=== PATIENT | female | born 1950 | race Caucasian/White ===

== ENCOUNTER 2016-06-20 12:57 | Outpatient (CLI) | payer BC ==
[~2016-06-20] VITALS: Ht 154.9 cm; Wt 56.7 kg
[~2016-06-20 12:57] MED LIST: AMLO5TAB2 PO; ASPI-875 PO; ATOR20TA66 PO; CALCIUM; CHOL200035 PO; DENO60DI SQ; DOCU100T7 PO; GLUC-116 PO; HCTZ12.5T PO; IBAN150T5; LORA10TA7 PO; MULT-974 PO; NEBI5TAB8 PO; OMEG-85 PO; UBID100C17 PO; [UNRECOGNIZED DRUG - OTHER]
[2016-06-20 13:00] VITALS: BP 130/61
[2016-06-20] MEDS ORDERED: DENOSUMAB 60 MG/1 ML (PROLIA) SQ ONE (13:15)
[2016-06-20] MEDS ORDERED: LISI-552 PO (14:23)
== END 2016-06-20 13:20 | disposition home or self-care (01) ==
LOC: SDC 12:57
PROVIDERS: ATTEND Internal Medicine
DX: M81.0 Age-related osteoporosis without current pathological fracture (principal)
CPT/HCPCS: 96372

== ENCOUNTER 2016-12-04 18:57 | Emergency (ER) | payer BC ==
[~2016-12-04] VITALS: Ht 154.9 cm; Wt 66.2 kg
[~2016-12-04 18:57] MED LIST changes: +LISI-552 PO
--- OUTSIDE RECORDS SUMMARY | 2016-12-04 19:04 | XMS REPORT ---
Author Author SYLVIA SEBAS Organization [facility] Address [address] [place] [address] Care Team Providers Care Supervisor Ditching Name Role Phone WARDSEBAS Hay Unavailable PROBLEMS Unknown Problems ALLERGIES Substance Reaction Event Type Date Status N.K.D.A. Unknown Non Drug Allergy Mar, Unknown SOCIAL HISTORY No smoking Hx information available PLAN OF CARE Activity Details Follow Up prn Reason: VITAL SIGNS Height 61.5 in 2016-04-10 Weight 168.2 lbs 2016-04-10 Temperature 98.8 degrees Fahrenheit 2016-04-10 Heart Rate 60 bpm 2016-04-10 Respiratory Rate 20 2016-04-10 BMI 31.26 kg/m2 2016-04-10 Blood pressure systolic 132 mmHg 2016-04-10 Blood pressure diastolic 64 mmHg 2016-04-10 MEDICATIONS Medication Instructions Dosage Frequency Start Date End Date Duration Status Calcium + D 500-1000-40 MG-UNT-MCG Active Vitamin D 2000 UNIT Orally Once a day 1 tablet 24h Active Atorvastatin Calcium 20 MG Orally Once a day 1 tablet 24h Active Bystolic 5 MG Orally Once a day 1 tablet 24h Active Estroven Active Erythromycin 5 MG/GM Ophthalmic 2 times a day apply 1/2 inch ribbon to both eyes 12h 30 Mar, 2016 Apr, 07 days Active Ranitidine HCl 150 MG Orally Once a day 1 capsule at bedtime 24h Active CoQ-10 100 MG Orally Once a day 1 capsule with a meal 24h Active Colace Adult Active Fish Oil + D3 2102-5232 MG-UNIT Orally Three times a day 1 capsule 8h Active Multivitamin Adult - Active Lisinopril 20 MG Active Loratadine 10 MG Orally Once a day 1 tablet 24h Active Hydrochlorothiazide 25 MG Orally Once a day 1 tablet 24h Active ASA 1 tab Active Prolia 60 MG/ML Active Amlodipine & Diet Manage Prod Active Glucosamine Chondroitin Complx - Active RESULTS No Results PROCEDURES Procedure Date Ordered Related Diagnosis Body Site [facility] VISIT NEW PATIENT Apr 10, 2016 Office Visit, New Pt., Level 3 Apr 10, 2016 IMMUNIZATIONS No Known Immunizations
--- OUTSIDE RECORDS SUMMARY | 2016-12-04 19:04 | XMS REPORT | Continuity of Care Document ---
Author Author [facility] Organization [facility] Address Unknown Phone Unavailable Allergies Active Description Code Type Severity Reaction Onset Reported/Identified Relationship to Patient Clinical Status Yes No Known Drug Allergies [id number] Drug Allergy Mild N/A 07/25/2008 Medications Problems Date Dx Coded Attending Type Code Diagnosis Diagnosed By 06/18/2014 MORALES WILHELM MD Ot 733.00 01/06/2015 MORALES WILHELM MD Ot M81.0 01/14/2015 MORALES WILHELM MD Ot 733.00 01/14/2015 MORALES WILHELM MD Ot 733.00 01/14/2015 MORALES WILHELM MD, Ot M81.0 01/27/2015 NOEL OMALLEY MD Ot I10 01/27/2015 NOEL OMALLEY MD Ot I65.23 01/27/2015 NOEL OMALLEY MD Ot R00.2 01/27/2015 NOEL OMALLEY MD Ot R78.2 06/21/2015 MORALES WILHELM MD Ot M81.0 06/24/2015 MORALES WILHELM MD Ot M81.0 07/08/2015 MORALES WILHELM MD Ot M81.0 AGE-RELATED OSTEOPOROSIS W/O CURRENT PAT 12/20/2015 MORALES WILHELM MD Ot 733.00 OSTEOPOROSIS NOS 12/20/2015 MORALES IWLHELM MD Ot 733.00 OSTEOPOROSIS NOS 12/20/2015 MORALES WILHELM MD Ot M81.0 AGE-RELATED OSTEOPOROSIS W/O CURRENT PAT 12/20/2015 MORALES WILHELM MD, Ot M81.0 AGE-RELATED OSTEOPOROSIS W/O CURRENT PAT 12/20/2015 NOEL OMALLEY MD Ot I10 ESSENTIAL (PRIMARY) HYPERTENSION 12/20/2015 NOEL OMALLEY MD Ot I65.23 OCCLUSION AND STENOSIS OF BILATERAL [place] 12/20/2015 NOEL OMALLEY MD Ot R00.2 PALPITATIONS 12/20/2015 NOEL OMALLEY MD Ot R78.2 FINDING OF COCAINE IN BLOOD 12/22/2015 MORALES WILHELM MD Ot M81.0 AGE-RELATED OSTEOPOROSIS W/O CURRENT PAT 01/06/2016 MORALES WILHELM MD Ot M81.0 AGE-RELATED OSTEOPOROSIS W/O CURRENT PAT 02/08/2016 MORALES WIHLELM MD Ot M81.0 AGE-RELATED OSTEOPOROSIS W/O CURRENT PAT 06/20/2016 MORALES WILHELM MD Ot 733.00 OSTEOPOROSIS NOS 06/20/2016 MORALES WILHELM MD Ot 733.00 OSTEOPOROSIS NOS 06/20/2016 MORALES WILHELM MD Ot M81.0 AGE-RELATED OSTEOPOROSIS W/O CURRENT PAT 06/20/2016 MORALES WILHELM MD, Ot M81.0 AGE-RELATED OSTEOPOROSIS W/O CURRENT PAT 06/20/2016 NOEL OMALLEY MD Ot I10 ESSENTIAL (PRIMARY) HYPERTENSION 06/20/2016 NOEL OMALLEY MD Ot I65.23 OCCLUSION AND STENOSIS OF BILATERAL [place] 06/20/2016 NOEL OMALLEY MD Ot R00.2 PALPITATIONS 06/20/2016 NOEL OMALLEY MD Ot R78.2 FINDING OF COCAINE IN BLOOD 06/20/2016 MORALES WILHELM MD Ot M81.0 AGE-RELATED OSTEOPOROSIS W/O CURRENT PAT 06/20/2016 MORALES WILHELM MD Ot M81.0 AGE-RELATED OSTEOPOROSIS W/O CURRENT PAT 06/21/2016 MORALES WILHELM MD, Ot M81.0 AGE-RELATED OSTEOPOROSIS W/O CURRENT PAT Procedures Results Encounters ACCT No. Visit Date/Time Discharge Status Pt. Type Provider Facility Loc./Unit Complaint [id number] 06/20/2016 12:57:00 2016 13:20:00 DIS Outpatient MORALES WILHELM MD [facility] OSTEOPOROSIS [id number] 12/20/2015 13:14:00 2015 23:59:59 CLS Outpatient MORALES WILHELM MD [facility] OSTEOPOROSIS [id number] 06/21/2015 13:10:00 2015 23:59:59 CLS Outpatient MORALES WILHELM MD [facility] OSTEOPOROSIS [id number] 01/14/2015 14:01:00 2014 23:59:59 CLS Outpatient SHAHRAM CARBAJAL, NOEL Magaña [facility] CARD HTN,HEART PALPITAITONS [id number] 12/17/2014 11:56:00 2014 23:59:59 CLS Outpatient MORALES WILHELM MD [facility] OSTEOPOROSIS [id number] 06/17/2014 13:18:00 2014 23:59:59 CLS Outpatient MORALES WILHELM MD [facility] OSTEOPOROSIS [id number] 12/17/2013 13:10:00 2013 23:59:59 CLS Outpatient MORALES WILHELM MD [facility] OSTEOPOROSIS [id number] 06/13/2013 15:26:00 2013 15:55:00 DIS Outpatient [id number] 12/13/2012 15:27:00 2012 23:59:59 CLS Outpatient
[2016-12-04 19:23] LABS: BASOPHILS % (AUTO) 0 % (0-10); EOSINOPHILS # (AUTO) 0.1 10^3/uL (0.0-0.3); EOSINOPHILS % (AUTO) 2 % (0-10); LYMPHOCYTES # (AUTO) 2.5 X 10^3 (1.0-4.0); LYMPHOCYTES % (AUTO) 37 % (12-44); MEAN CORPUSCULAR HEMOGLOBIN 31 PG (25-34); MEAN CORPUSCULAR HGB CONC 34 G/DL (32-36); MEAN CORPUSCULAR VOLUME 91 FL (80-99); MEAN PLATELET VOLUME 11.6 FL (7.4-10.4); MONOCYTES # (AUTO) 0.7 X 10^3 (0.0-1.0); MONOCYTES % (AUTO) 9 % (0-12); NEUTROPHILS # (AUTO) 3.5 X 10^3 (1.8-7.8); NEUTROPHILS % (AUTO) 51 % (42-75); PLATELET COUNT 198 10^3/uL (130-400); RED BLOOD COUNT 4.46 10^6/uL (4.35-5.85); RED CELL DISTRIBUTION WIDTH 13.6 % (10.0-14.5); WHITE BLOOD COUNT 6.9 10^3/uL (4.3-11.0)
[2016-12-04 19:29] LABS: INR 0.9 (0.8-1.4); PROTHROMBIN TIME PATIENT 12.4 SEC (12.2-14.7)
[2016-12-04] MEDS ORDERED: ASPIRIN 81 MG CHEW (CHILDREN'S ASA) PO ONE (19:30)
[2016-12-04 19:39] LABS: ALANINE AMINOTRANSFERASE 21 U/L (0-55); ALBUMIN 4.3 GM/DL (3.2-4.5); ANION GAP 9 MMOL/L (5-14); ASPARTATE AMINO TRANSFERASE 24 U/L (5-34); BILIRUBIN,TOTAL 1.7 MG/DL (0.1-1.0); BLOOD UREA NITROGEN 13 MG/DL (7-18); BUN/CREATININE RATIO 16; CALCIUM 10.6 MG/DL (8.5-10.1); CARBON DIOXIDE 28 MMOL/L (21-32); CHLORIDE 103 MMOL/L (98-107); CREATININE SERUM 0.81 MG/DL (0.60-1.30); GFR ESTIMATED > 60; GLUCOSE 129 MG/DL (70-105); MAGNESIUM 1.9 MG/DL (1.8-2.4); POTASSIUM 3.1 MMOL/L (3.6-5.0); SODIUM 140 MMOL/L (135-145); TOTAL PROTEIN 6.8 GM/DL (6.4-8.2)
[2016-12-04 19:45] LABS: MYOGLOBIN SERUM 41.3 NG/ML (10.0-92.0)
[2016-12-04 20:00] VITALS: BP 135/58
--- NOTE | 2016-12-04 20:12 | ED Chest Pain ---
General Chief Complaint: Chest Pain Stated Complaint: CHEST TIGHTNESS Nursing Triage Note: intermittant chest pain/pressure, tingling x4 days. c/o feeling weak/soa tonight. Nursing Sepsis Screen: No Definite Risk Source: patient, family (son) Exam Limitations: no limitations History of Present Illness Time seen by provider: 19:36 Initial Comments Patient presents to ER by private conveyance with a chief complaint that she was having some intermittent chest pressure and pain on the right side of her chest for the last few weeks. This is not accompanied by any coughing however it is worse when she was working in the heat without before meals and she felt short of breath. She has had a few waves of nausea for 10:15 seconds the last couple days when the chest pain came on. She's also had some tingling for a few minutes in her left fingertips. She has no primary history of coronary disease however she does see Dr. Zhu, retail reset merchandiser because of her blood pressure problems. She saw Dr. Bryson 1-2 days ago her primary care physician for routine visit and they discussed it but he felt was more likely muscular strain at that time. She says that pain and pressure in her right chest become more persistent and more frequent and this time did not get better after she went home to sit down. Most recently she was walking in a pool for about 15 minutes for exercise and that's when the pain and shortness of breath came. Typically she will walk for an hour. She denies any fevers rash malaise vomiting, diarrhea , dysuria. Allergies and Home Medications Allergies Coded Allergies: No Known Drug Allergies (Unverified , 07/25/08) Home Medications Amlodipine Besylate 5 Mg Tablet, 5 MG PO DAILY, (Reported) Aspirin 81 Mg Tablet.dr, 81 MG PO DAILY for 30 Days Prescribed by: FOZIA JEFFERSON on 06/17/14 141 Atorvastatin Calcium 20 Mg Tablet, 20 MG PO DAILY for 30 Days Prescribed by: FOZIA JEFFERSON on 06/17/141413 Cholecalciferol (Vitamin D3) 2,000 Unit Capsule, 2,000 UNIT PO DAILY for 30 Days Prescribed by: FOZIA JEFFERSON on 06/17/14 141 Denosumab 60 Mg/1 Ml Disp.syrin, 60 MG SQ UD, #1 Prescribed by: FOZIA JEFFERSON on 06/17/141413 Docusate Sodium 100 Mg Tablet, 50 MG PO PRN for 30 Days Prescribed by: FOZIA JEFFERSON on 06/17/14 141 Gluc/Brady-Msm#2/C/D3/Wei/Born 1 Each Tablet, 1 EACH PO DAILY for 30 Days Prescribed by: FOZIA JEFFERSON on 06/17/14 141 Hydrochlorothiazide 12.5 Mg Cap, 25 MG PO DAILY for 30 Days Prescribed by: FOZIA JEFFERSON on 06/17/14 1414 Lisinopril 20 Mg Tablet, 20 MG PO DAILY, #1 Prescribed by: YSABEL HUBBARD on 06/20/16 1423 Loratadine 10 Mg Tablet, 10 MG PO DAILY for 30 Days Prescribed by: FOZIA JEFFERSON on 06/17/14 141 Multivitamin 1 Each Tablet, 1 EACH PO DAILY for 30 Days Prescribed by: FOZIA JEFFERSON on 06/17/14 141 Nebivolol Hcl 5 Mg Tablet, 1 EACH PO DAILY, #30 Prescribed by: FOZIA JEFFERSON on 06/17/14 1414 [place]-3S/Dha/Epa/Fish Oil/D3 1 Each Capsule, 3 EACH PO DAILY for 30 Days Prescribed by: FOZIA JEFFERSON on 06/17/14 141 Ubidecarenone 100 Mg Capsule, 100 MG PO DAILY for 30 Days Prescribed by: FOZIA JEFFERSON on 06/17/14 141 [Calcium] , (Reported) [Herbal Estrogen] , (Reported) Review of Systems Constitutional: No chills, No diaphoresis, No fever, No malaise EENTM: No Mouth Pain, No Mouth Swelling Respiratory: Denies Cough, SOA With Exertion, Denies SOA at Rest Cardiovascular: See HPI, Chest Pain, Lightheadedness, Denies Palpitations, Denies Syncope Gastrointestinal: Denies Abdomen Distended, Denies Abdominal Pain, Denies Constipated, Denies Diarrhea, Nausea, Denies Vomiting Musculoskeletal: No back pain, No joint pain Skin: No pruritus, No rash Psychiatric/Neurological: Denies Headache, Denies Numbness, Paresthesia Hematologic/Lymphatic: Denies Easy Bleeding, Denies Easy Bruising Past Dzarrgz-Mocgdt-Tmnmlz Hx Patient Social History Alcohol Use: Denies Use Recreational Drug Use: No Smoking Status: Never a Smoker 2nd Hand Smoke Exposure: No Recent Foreign Travel: No Contact w/Someone Who Travel: No Recent Infectious Disease Expo: No Recent Hopitalizations: No Immunizations Up To Date Tetanus Booster (TDap): Unknown Seasonal Allergies Seasonal Allergies: Yes Surgeries History of Surgeries: Yes Surgeries: Adenoidectomy, Tonsillectomy Respiratory History of Respiratory Disorde: No Cardiovascular History of Cardiac Disorders: Yes Cardiac Disorders: High Cholesterol, Hypertension Neurological History of Neurological Disord: No Reproductive System : No Hx Reproductive Disorders: No MEDICAL RECORDS ANALYST History: Menopausal Genitourinary History of Genitourinary Disor: No Gastrointestinal History of Gastrointestinal Di: No Musculoskeletal History of Musculoskeletal Dis: Yes Musculoskeletal Disorders: Arthritis Endocrine History of Endocrine Disorders: No HEENT History of HEENT Disorders: No Cancer History of Cancer: No Psychosocial History of Psychiatric Problem: No Blood Transfusions History of Blood Disorders: No Physical Exam Vital Signs Vital Sign - Last 12Hours Capillary Refill : Less Than 3 Seconds General Appearance: No Apparent Distress, WD/WN HEENT: PERRL/EOMI, TMs Normal, Normal ENT Inspection, Pharynx Normal Neck: Full Range of Motion, Non Tender, Supple Respiratory: Chest Non Tender, Lungs Clear, Normal Breath Sounds Cardiovascular: Regular Rate, Rhythm, No Edema, No Gallop, No JVD, No Murmur, Normal Peripheral Pulses Gastrointestinal: Normal Bowel Sounds, No Organomegaly, Non Tender, Soft Extremity: Normal Capillary Refill, No Pedal Edema Neurologic/Psychiatric: Alert, Oriented x3 Skin: Normal Color, Warm/Dry Progress/Results/Core Measures Results/Orders Lab Results Laboratory Tests Test 12/04/16 19:10 12/04/16 20:50 Range/Units White Blood Count 6.9 4.3-11.0 10^3/uL Red Blood Count 4.46 4.35-5.85 10^6/uL Hemoglobin 13.7 11.5-16.0 G/DL Hematocrit 41 35-52 % Mean Corpuscular Volume 91 80-99 FL Mean Corpuscular Hemoglobin 31 25-34 PG Mean Corpuscular Hemoglobin Concent 34 32-36 G/DL Red Cell Distribution Width 13.6 10.0-14.5 % Platelet Count 198 130-400 10^3/uL Mean Platelet Volume 11.6 H 7.4-10.4 FL Neutrophils (%) (Auto) 51 42-75 % Lymphocytes (%) (Auto) 37 12-44 % Monocytes (%) (Auto) 9 0-12 % Eosinophils (%) (Auto) 2 0-10 % Basophils (%) (Auto) 0 0-10 % Neutrophils # (Auto) 3.5 1.8-7.8 X 10^3 Lymphocytes # (Auto) 2.5 1.0-4.0 X 10^3 Monocytes # (Auto) 0.7 0.0-1.0 X 10^3 Eosinophils # (Auto) 0.1 0.0-0.3 10^3/uL Basophils # (Auto) 0.0 0.0-0.1 10^3/uL Prothrombin Time 12.4 12.2-14.7 SEC INR Comment 0.9 0.8-1.4 Activated Partial Thromboplast Time 29 24-35 SEC Sodium Level 140 135-145 MMOL/L Potassium Level 3.1 L 3.6-5.0 MMOL/L Chloride Level 103 98-107 MMOL/L Carbon Dioxide Level 28 21-32 MMOL/L Anion Gap 9 5-14 MMOL/L Blood Urea Nitrogen 13 7-18 MG/DL Creatinine 0.81 0.60-1.30 MG/DL Estimat Glomerular Filtration Rate > 60 BUN/Creatinine Ratio 16 Glucose Level 129 H 70-105 MG/DL Calcium Level 10.6 H 8.5-10.1 MG/DL Magnesium Level 1.9 1.8-2.4 MG/DL Total Bilirubin 1.7 H 0.1-1.0 MG/DL Aspartate Amino Transf (AST/SGOT) 24 5-34 U/L Alanine Aminotransferase (ALT/SGPT) 21 0-55 U/L Alkaline Phosphatase 41 40-136 U/L Myoglobin 41.3 10.0-92.0 NG/ML Troponin I < 0.30 < 0.30 <0.30 NG/ML Total Protein 6.8 6.4-8.2 GM/DL Albumin 4.3 3.2-4.5 GM/DL My Orders Orders - BHAVNA DENNIS Cbc With Automated Diff (12/04/16 19:17) Magnesium (12/04/16 19:17) Chest 1 View, Ap/Pa Only (12/04/16 19:17) Ekg Tracing (12/04/16 19:17) Cardiac Profile 1 (12/04/16 19:17) Comprehensive Metabolic Panel (12/04/16 19:17) Myoglobin Serum (12/04/16 19:17) Protime With Inr (12/04/16:17) Partial Thromboplastin Time (12/04/16:17) O2 (12/04/16 19:17) Monitor-Rhythm Ecg Trace Only (12/04/16:17) Lipid Panel (12/05/16 06:00) Aspirin Chewable Tablet (Baby Aspirin Ch (12/04/16 19:30) Saline Lock/Iv-Start (12/04/16 19:17) Potassium Chloride (Tablet) (K Dur Table (12/04/16 20:30) Troponin I (12/04/16 21:00) Medications Given in ED Current Medications Medications Dose Ordered Sig/Jennifer Route Start Time Stop Time Status Last Admin Dose Admin Aspirin 324 mg ONCE ONCE PO 12/04/16 19:30 12/04/16 19:31 DC 12/04/16 19:29 324 MG Potassium Chloride 20 meq ONCE ONCE PO 12/04/16 20:30 12/04/16 20:31 DC 12/04/16 20:23 20 MEQ Vital Signs/I&O Vital Sign - Last 12Hours 12/04/16 12/04/16 12/04/16 12/04/16 19:03 19:03 19:03 20:00 Temp 97.6 Pulse 67 57 Resp 16 15 B/P (MAP) 174/72 135/58 Pulse Ox 98 98 99 O2 Delivery Nasal Cannula Nasal Cannula Nasal Cannula Room Air O2 Flow Rate 2.0 2.0 2.00 12/04/16 12/04/16 20:52 21:51 Pulse 52 56 Resp 10 15 B/P (MAP) 139/77 141/75 Pulse Ox 98 100 O2 Delivery Nasal Cannula Nasal Cannula O2 Flow Rate 2.00 2.00 Blood Pressure Mean: 106 Progress Note : Time: 20:26 Progress Note ED ACS score is 10 which is considered low. We will perform a two-hour troponin rule out given the normal EKG and initial troponin. We'll replace her potassium now and give her instructions to drink Gatorade or eat potassium-rich foods for the next day or 2 and discuss with her primary care physician the use of hydrochlorothiazide. She says she had blood work just last week and the potassium was normal then. ECG Initial ECG Impression Date: Dec 04, 2016 Initial ECG Impression Time: 19:03 Initial ECG Rate: 63 Initial ECG Rhythm: Normal Sinus Initial ECG Intervals: Normal Initial ECG Impression: Normal Initial ECG Comparisson: No Previous ECG Available Comment No T-wave elevation or depression. Diagnostic Imaging Diagonstic Imaging: Xray Plain Films/CT/US/NM/MRI: chest Comments NAME: JOEY LARSON MED REC#: [id number] PHYSICIAN: BHAVNA DENNIS MD CC: HUNTER MEDELLIN MD; BHAVNA DENNIS Page 1 of 1 RADIOLOGY REPORT [facility] [place] [place] CC: HUNTER MEDELLIN MD; BHAVNA DENNIS Page 1 of 1 RADIOLOGY REPORT NAME: JOEY LARSON MED REC#: [id number] PT STATUS: REG ER : 1950 PHYSICIAN: BHAVNA DENNIS MD ADMIT DATE: 12/04/16/ER Signed Date of Exam: 12/04/16 CHEST 1 VIEW, AP/PA ONLY EXAMINATION: Chest radiograph, portable AP view. DATE: December 04, 2016 at 19:56 hours. INDICATION: 66-year-old female, chest tightness. COMPARISON: July 25, 2008. FINDINGS: Heart size and mediastinal contours are unchanged. There is no identified pneumothorax. There is no large pleural effusion. There is no identified focal airspace consolidation. IMPRESSION: No identified acute cardiopulmonary abnormality. Dictated by: Dictated on workstation # [id number] Dict: 12/04/162008 Trans: 12/04/162017 Interpreted by: HUNTER MEDELLIN MD Electronically signed by: HUNTER MEDELLIN MD 12/04/162017 Reviewed: Reviewed by Me Departure Impression Impression: Primary Impression: Chest pain Qualified Codes: R07.9 - Chest pain, unspecified Disposition: 01 HOME, SELF-CARE Condition: Stable Departure-Patient Inst. Decision time for Depature: 21:53 Referrals: MORALES BRYSON MD (PCP/Family) Primary Care Physician Patient Instructions: Chest Pain That Is Not Caused by the Heart (DC) Add. Discharge Instructions: Please keep your scheduled appointment tomorrow with your retail reset merchandiser, Dr. Zhu. He may discuss your potassium and hydrochlorothiazide usage with your primary care physician at her next appointment. Drink one Gatorade a day for the next 1-2 days or eat foods that are high in potassium such as bananas for the next couple days to replete your body store of potassium. If you begin to have new or severely worsening chest pain you should return to the ER for further evaluation. All discharge instructions reviewed with patient and/or family. Voiced understanding. Copy Copies To 1: NOEL ZHU MD Copies To 2: MORALES BRYSON MD, TITUS J Dec 04, 2016 20:12
--- NOTE | 2016-12-04 20:20 | Diagnostic Imaging Report ---
EXAMINATION: Chest radiograph, portable AP view. DATE: December 04, 2016 at 19:56 hours. INDICATION: 66-year-old female, chest tightness. COMPARISON: July 25, 2008. FINDINGS: Heart size and mediastinal contours are unchanged. There is no identified pneumothorax. There is no large pleural effusion. There is no identified focal airspace consolidation. IMPRESSION: No identified acute cardiopulmonary abnormality. Dictated by: Dictated on workstation # [id number]
[2016-12-04] MEDS ORDERED: KCL 20 MEQ TAB (K-DUR) PO ONE (20:30)
[2016-12-04 20:52] VITALS: BP 139/77
[2016-12-04 21:51] VITALS: BP 141/75
[2016-12-04 22:00] VITALS: BP 135/69
== END 2016-12-04 21:55 | disposition home or self-care (01) ==
LOC: EDUNIT# 18:57 → ER 18:59
DX: R07.89 Other chest pain (principal); E78.00 Pure hypercholesterolemia, unspecified; I10 Essential (primary) hypertension; Z79.82 Long term (current) use of aspirin; Z90.89 Acquired absence of other organs
CPT/HCPCS: 36415; 71010; 80053; 83735; 83874; 84484; 85025; 85610; 85730; 93005; 93041

== ENCOUNTER → 2016-12-22 | Outpatient (CLI) | payer MEDICARE, OTHER | LOC: CARD 13:38 | PROVIDERS: ATTEND Physician Assistant | DX: I10 Essential (primary) hypertension (principal); E78.2 Mixed hyperlipidemia; I65.23 Occlusion and stenosis of bilateral carotid arteries; R07.89 Other chest pain | CPT/HCPCS: 93306 ==

== ENCOUNTER → 2016-12-25 | Outpatient (CLI) | payer MEDICARE, OTHER ==
[~2016-12-25] VITALS: Ht 157.5 cm; Wt 66.2 kg
[~2016-12-25] MED LIST changes: +CATHETER FLUSH 10 ML SYR IV PRN
[2016-12-25 09:22] VITALS: BP 137/66
--- NOTE | 2016-12-26 07:54 | STRESS TEST ---
DATE OF SERVICE: 12/25/2016 EXERCISE MYOVIEW STRESS TEST REPORT REFERRING PHYSICIAN: Dr. Bryson. TEST DATE: 12/25/2016. Baseline heart rate is 54, baseline blood pressure 140/71, baseline EKG is sinus rhythm with no ischemic changes. In summary, the patient was injected with 10.03 mCi of technetium-99 Myoview and the resting images were obtained. Then, she started exercising with a baseline heart rate, blood pressure and EKG mentioned above. She was able to exercise for 8 minutes on standard Jabier protocol with peak exercise level, blood pressure was 156/65. EKG was showing [address] depression in II, III, aVF. [address] depression in V3, V4, V5 and V6. During recovery, heart rate and blood pressure returned to baseline. EKG returned to baseline. The resting and stress images were reviewed and compared in the short axis, horizontal long axis and vertical long axis views. Review of the images showed good radiotracer uptake with no ischemia or infarction on SPECT images. SSS is 1, SDS is 1, TID value 1.02. On the gated images, the left ventricle appeared to be normal size with normal contractility. Calculated ejection fraction is 77%. CONCLUSION: 1. Good exercise tolerance a total of 8 minutes on standard Jabier protocol, total of 9.7 METS achieving 85% of maximum expected heart rate. 2. Appropriate heart rate and blood pressure response to exercise returned to baseline during recovery. 3. Nondiagnostic EKG changes with exercise returned to baseline during recovery. 4. No ischemia or infarction on SPECT images. 5. Normal left ventricular size with normal contractility, calculated ejection fraction 77%. Job ID: [id number] DocumentID: [id number] Dictated Date: 12/25/2016 16:16:57 Public Health Internship Date: 12/26/2016 00:46:10 Dictated By: NOEL OMALLEY MD
== END ==
LOC: CARD 07:18
PROVIDERS: ATTEND Physician Assistant
DX: R07.89 Other chest pain (principal); I10 Essential (primary) hypertension; E78.2 Mixed hyperlipidemia; I65.23 Occlusion and stenosis of bilateral carotid arteries
CPT/HCPCS: 78452; 93017

== ENCOUNTER → 2016-12-28 | Outpatient (CLI) | payer MEDICARE, OTHER ==
[~2016-12-28] VITALS: Ht 157.5 cm; Wt 66.2 kg
[~2016-12-28] MED LIST changes: -CATHETER FLUSH 10 ML SYR IV PRN; +DENOSUMAB 60 MG/1 ML (PROLIA) SQ NR
[2016-12-28 12:55] VITALS: BP 123/83
== END ==
LOC: SDC 12:52
PROVIDERS: ATTEND Internal Medicine
DX: M81.0 Age-related osteoporosis without current pathological fracture (principal)
CPT/HCPCS: 96372

== ENCOUNTER 2018-01-04 13:10 | Outpatient (CLI) | payer MEDICARE, OTHER ==
[~2018-01-04] VITALS: Ht 157.5 cm; Wt 66.2 kg
[~2018-01-04 13:10] MED LIST changes: -AMLO5TAB2 PO; +AMLO5TAB7 PO; -DENOSUMAB 60 MG/1 ML (PROLIA) SQ NR
[2018-01-04] MEDS ORDERED: DENOSUMAB 60 MG/1 ML (PROLIA) SQ SCH (13:30)
[2018-01-04 13:45] VITALS: BP 139/70
== END 2018-01-04 13:45 | disposition home or self-care (01) ==
LOC: SDC 13:10
PROVIDERS: ATTEND Internal Medicine
DX: M81.0 Age-related osteoporosis without current pathological fracture (principal)
CPT/HCPCS: 96372

== ENCOUNTER 2018-05-03 10:12 | Outpatient (RCR) | payer MEDICARE, OTHER ==
[~2018-05-03 10:12] MED LIST changes: -AMLO5TAB7 PO; +AMLO5TAB9 PO
== END 2018-05-03 10:56 | disposition home or self-care (01) ==
PROVIDERS: ATTEND Nurse Practitioner Family
DX: M17.0 Bilateral primary osteoarthritis of knee (principal)

== ENCOUNTER → 2018-07-05 | Outpatient (CLI) | payer MEDICARE, OTHER ==
[~2018-07-05] VITALS: Ht 157.5 cm; Wt 66.2 kg
[~2018-07-05] MED LIST changes: +DENOSUMAB 60 MG/1 ML (PROLIA) SQ NR
[2018-07-05 13:00] VITALS: BP 151/68
== END ==
LOC: SDC 12:55
PROVIDERS: ATTEND Internal Medicine
DX: M81.0 Age-related osteoporosis without current pathological fracture (principal)
CPT/HCPCS: 96372

== ENCOUNTER → 2018-07-12 | Outpatient (CLI) | payer MEDICARE, OTHER ==
[~2018-07-12] MED LIST changes: -DENOSUMAB 60 MG/1 ML (PROLIA) SQ NR
== END ==
LOC: CARD 10:55
PROVIDERS: ATTEND Internal Medicine Cardiovascular Disease
DX: R07.89 Other chest pain (principal); R42 Dizziness and giddiness; E78.5 Hyperlipidemia, unspecified; R00.2 Palpitations; I65.29 Occlusion and stenosis of unspecified carotid artery; I08.0 Rheumatic disorders of both mitral and aortic valves
CPT/HCPCS: 93306

== ENCOUNTER → 2018-11-07 | Outpatient (CLI) | payer MEDICARE, OTHER ==
--- NOTE | 2018-11-08 20:59 | Diagnostic Imaging Report ---
INDICATION: Screening. At this time there are no current complaints. EXAMINATION: Bilateral digital screening mammogram with CAD. 3D tomographic images were obtained and reviewed. The current study was also evaluated with a Computer Aided Detection (CAD) system. COMPARISON: This study is compared to the prior exams of 11/05/2017, 11/03/2016 and 11/01/2015. FINDINGS: The fibroglandular tissue in both breasts is heterogeneously dense. This does limit the sensitivity of this exam. On the MLO view of the left breast, in the superior aspect of the breast, roughly 8 cm from the nipple, there is a 5 mm nodular density. There is a corresponding abnormality on the craniocaudad view although this is partially obscured by one of the skin lesion markers. This nodular density may be somewhat more conspicuous than on the prior study. I would recommend that a compression view of this area be obtained in the CC and MLO projections. Ultrasound should also be performed. The overall appearance of the breasts has not changed significantly otherwise. There is no primary or secondary sign of malignancy noted. IMPRESSION: Additional mammographic views and ultrasound of the left breast would be recommended for further study. ACR BI-RADS Category 0: Incomplete. (Needs additional imaging evaluation). Result letter will be mailed to the patient. Note: At least 10% of breast cancer is not imaged by mammography. Dictated by: Dictated on workstation # [id number]
== END ==
LOC: RAD 10:04
PROVIDERS: ATTEND Internal Medicine
DX: Z12.31 Encounter for screening mammogram for malignant neoplasm of breast (principal)
CPT/HCPCS: 77067

== ENCOUNTER → 2018-11-08 | Outpatient (CLI) | payer MEDICARE, OTHER ==
--- NOTE | 2018-11-08 21:08 | Diagnostic Imaging Report ---
INDICATION: Abnormal mammogram. EXAMINATION: Ultrasound of the left breast. FINDINGS: The screening mammogram performed on 11/07/2018 suggests that slight increased prominence of the nodular density in the upper inner aspect of the left breast. The diagnostic mammogram performed prior to this study failed to show any definite abnormality. On this study there is a small, 4 mm, well circumscribed avascular hypoechoic area in the 10 o'clock position, roughly 4 cm from the nipple. This has the appearance of a small cyst. I am not certain if this corresponds to the density seen on the mammogram, however. There are no solid lesions to suggest malignancy. During the course of the exam, a 5 mm hypoechoic avascular lesion was also seen in the 2 o'clock position of the breast, 2 cm from the nipple. This has the appearance of a cyst as well. IMPRESSION: There is no evidence for malignancy. The density seen on the screening mammogram may be related to a small cyst. It may prove worthwhile, however, to have a short-term (six-month) followup mammogram of the left breast for continued evaluation. ACR BI-RADS Category 3: Probably benign findings. Result letter will be mailed to the patient. Note: At least 10% of breast cancer is not imaged by mammography. Dictated by: Dictated on workstation # [id number]
--- NOTE | 2018-11-08 21:14 | Diagnostic Imaging Report ---
INDICATION: Abnormal screening mammogram. EXAMINATION: Unilateral left breast digital diagnostic mammogram with CAD. The current study was also evaluated with a Computer Aided Detection (CAD) system. FINDINGS: The screening mammogram performed on 11/07/2018 suggested that a small nodular density in the superior aspect of the left breast did seem somewhat more prominent than on the prior exam of 11/05/2017. The compression views of that area show no definite abnormality. The area in question is difficult to visualize on the true lateral view. Ultrasound would be recommended for further evaluation of the left breast. IMPRESSION: Ultrasound would be recommended for further evaluation of the left breast. ACR BI-RADS Category 0: Incomplete. (Needs additional imaging evaluation). Result letter will be mailed to the patient. Note: At least 10% of breast cancer is not imaged by mammography. Dictated by: Dictated on workstation # [id number]
== END ==
LOC: RAD 11:13
PROVIDERS: ATTEND Internal Medicine
DX: R92.2 Inconclusive mammogram (principal)
CPT/HCPCS: 76642

== ENCOUNTER → 2018-11-26 | Outpatient (CLI) | payer MEDICARE, OTHER ==
--- NOTE | 2018-11-26 11:57 | Diagnostic Imaging Report ---
INDICATION: 68-year-old asymptomatic postmenopausal female COMPARISON: None available. FINDINGS: AP Spine L1-L4: [BMD (g/cm2): 0.940] [T-Score: -2.2] [Z-Score: -0.7] [BMD Previous: N/A] [BMD % Change: N/A] LT Hip Neck: [BMD (g/cm2): 0.977] [T-Score: -0.4] [Z-Score: 1.1] LT Hip Total: [BMD (g/cm2):1.133] [T-Score:1.0] [Z-Score: 2.2] [BMD Previous: N/A] [BMD % Change: N/A] RT Hip Neck: [BMD (g/cm2):1.011] [T-Score:-0.2] [Z-Score:1.3] RT Hip Total: [BMD (g/cm2):1.121] [T-score:0.9] [Z-Score:2.1] [BMD Previous:N/A] [BMD % Change:N/A] *Indicates significant change from prior examination based on 95% confidence level. World Health Organization criteria for BMD interpretation classify patients as Normal (T-score at or above -1.0), Osteopenic (T-score between -1.0 and -2.5) or Osteoporotic (T-score at or below -2.5). LIMITATIONS AND MODIFICATION: None. FRACTURE RISK (FRAX SCORE): The ten year probability of (%): Major Osteoporotic Fracture: [7.5] Hip Fracture: [0.5] IMPRESSION: 1. Osteopenia (Low bone mass). 2. Baseline examination. 3. See below National Osteoporosis Foundation guidelines on when to potentially initiate pharmacologic therapy. Based on the National Osteoporosis Foundation Guidelines, pharmacologic treatment should be initiated in any of the following, unless clinical conditions suggest otherwise: * Any patient with prior fragility fracture of the hip or vertebrae. A spine fracture indicates 5X risk for subsequent spine fracture and 2X risk for subsequent hip fracture. * Osteoporosis (T-score <-2.5). * Postmenopausal women and men age 50 and older with low bone mass/osteopenia (T-score between -1.0 and -2.5) by DXA and 10-year major osteoporotic fracture greater than 20% or a 10-year probability of hip fracture greater than 3%. These fracture risks are supplied above in the FRAX score, if applicable. * Clinician judgement and/or patient preferences may indicate treatment for people with 10-year fracture probabilities above or below these levels. Dictated by: Dictated on workstation # [id number]
== END ==
LOC: RAD 08:42
PROVIDERS: ATTEND Internal Medicine
DX: M85.88 Other specified disorders of bone density and structure, other site (principal); M81.0 Age-related osteoporosis without current pathological fracture; Z78.0 Asymptomatic menopausal state
CPT/HCPCS: 77080

== ENCOUNTER → 2018-12-04 | Outpatient (CLI) | payer MEDICARE, OTHER ==
[~2018-12-04] VITALS: Ht 157 cm; Wt 72.0 kg
[~2018-12-04] MED LIST changes: +CATHETER FLUSH 10 ML SYR IV PRN; +REGADENOSON 0.4 MG/5 ML SYR (LEXISCAN) IV ONE
[2018-12-04 13:03] VITALS: BP 147/77
[2018-12-04 13:04] VITALS: BP 163/71
--- NOTE | 2018-12-04 21:27 | STRESS TEST ---
DATE OF SERVICE: 12/04/2018 LEXISCAN MYOVIEW STRESS TEST REFERRING PHYSICIAN: Dr. Saroj Bryson. Baseline heart rate is 57, baseline blood pressure 147/77. Baseline EKG is sinus rhythm with no ischemic changes. In summary, the patient was injected with 10.12 mCi of technetium-99 Myoview and the resting images were obtained. Then, the patient received 0.4 mg of Lexiscan followed by 28.3 mCi of technetium-99 Myoview. Throughout the test, there were no EKG changes. The resting and stress images were reviewed and compared in the short axis, horizontal long axis, and vertical long axis views. Review of the images showed breast attenuation with mild decreased uptake involving the mid to apical anterior wall with mild reversibility. SSS is 4, SDS 3, TID value 1.04. On the gated images, the left ventricle appeared to be normal size with normal contractility. Calculated ejection fraction 70%. CONCLUSION: 1. The patient tolerated Lexiscan well. 2. Breast attenuation with mild decreased uptake involving the mid to apical anterior wall with subtle reversibility. 3. Normal left ventricular size with normal contractility. Calculated ejection fraction 70%. Job ID: [id number] DocumentID: [id number] Dictated Date: 12/04/2018 15:58:42 [employer]rier Date: 12/04/2018 21:26:47 Dictated By: NOEL OMALLEY MD
== END ==
LOC: CARD 11:01
PROVIDERS: ATTEND Physician Assistant
DX: I10 Essential (primary) hypertension (principal); E78.5 Hyperlipidemia, unspecified; R07.89 Other chest pain; R42 Dizziness and giddiness
CPT/HCPCS: 78452; 93017

== ENCOUNTER 2018-12-11 10:47 | Day surgery (SDC) | payer MEDICARE, OTHER ==
[~2018-12-11] VITALS: Ht 154.9 cm; Wt 71.8 kg
[2018-12-11] VITALS (7 sets, daily range): BP systolic 146–171; BP diastolic 67–83
[~2018-12-11 10:47] MED LIST changes: -CATHETER FLUSH 10 ML SYR IV PRN; -REGADENOSON 0.4 MG/5 ML SYR (LEXISCAN) IV ONE
[2018-12-11] MEDS ORDERED: NS IV 1000 ML 1,000 ML ONE (10:56)
[2018-12-11] MEDS ORDERED: LIDOCAINE 1% INJ 20 ML 20 ML VIAL ONE (10:56)
[2018-12-11] MEDS ORDERED: HEParin (CATH LAB) 2,000 ML IV ONE (10:57)
[2018-12-11] MEDS ORDERED: NS IV 1000 ML 1,000 ML IV SCH ×2 (10:58→12:12)
[2018-12-11 11:19] LABS: HEMOGLOBIN 13.3 G/DL (11.5-16.0); RED CELL DISTRIBUTION WIDTH 13.2 % (10.0-14.5); WHITE BLOOD COUNT 6.7 10^3/uL (4.3-11.0)
[2018-12-11] MEDS ORDERED: fentaNYL INJECTION 100 MCG/2 ML AMP ONE (11:22)
[2018-12-11] MEDS ORDERED: VERAPAMIL 5 MG/2 ML (CALAN) VIAL IV ONE (11:22)
[2018-12-11] MEDS ORDERED: MIDAZOLAM 5 MG/5 ML (VERSED) VIAL ONE (11:22)
[2018-12-11] MEDS ORDERED: HEParin 1000 UNIT/ML (10ML VIAL) FOR BOLUS ONE (11:22)
[2018-12-11] MEDS ORDERED: NITRO DRIP 25000 MCG/D5W 250 ML IV ONE (11:23)
--- NOTE | 2018-12-11 11:30 | Diagnostic Imaging Report ---
INDICATION: ABN STRESS HTN HLP COMPARISON: 12/04/2016 FINDINGS: Single frontal view of the chest demonstrates mild cardiomegaly. Pulmonary vasculature is within normal limits. The lungs are well aerated and clear. No large pleural effusion or pneumothorax is seen. The visualized osseous structures show no acute abnormalities. IMPRESSION: 1. No acute cardiopulmonary process. Dictated by: Dictated on workstation # [id number]
[2018-12-11 11:32] LABS: INR 0.9 (0.8-1.4); PROTHROMBIN TIME PATIENT 12.6 SEC (12.2-14.7)
[2018-12-11] MEDS ORDERED: DENO60DI SQ (11:36)
[2018-12-11] MEDS ORDERED: LISI10TA2 PO (11:36)
[2018-12-11] MEDS ORDERED: ATOR20TA66 PO (11:36)
[2018-12-11] MEDS ORDERED: HYDR25TA4 PO (11:36)
[2018-12-11] MEDS ORDERED: METO-387 PO (11:36)
[2018-12-11 11:41] LABS: ALANINE AMINOTRANSFERASE 24 U/L (0-55); ALBUMIN 4.2 GM/DL (3.2-4.5); ALKALINE PHOSPHATASE 50 U/L (40-136); BILIRUBIN,TOTAL 1.4 MG/DL (0.1-1.0); BUN/CREATININE RATIO 24; CARBON DIOXIDE 27 MMOL/L (21-32); CHLORIDE 105 MMOL/L (98-107); CHOLESTEROL 201 MG/DL (< 200); CREATININE SERUM 0.78 MG/DL (0.60-1.30); GFR ESTIMATED > 60; GLUCOSE 101 MG/DL (70-105); HDL CHOLESTEROL 79 MG/DL (40-60); POTASSIUM 3.6 MMOL/L (3.6-5.0); SODIUM 142 MMOL/L (135-145); TOTAL PROTEIN 6.7 GM/DL (6.4-8.2); TRIGLYCERIDES 74 MG/DL (<150); VLDL CHOLESTEROL 15 MG/DL (5-40)
[2018-12-11] MEDS ORDERED: ASPI-983 PO (11:50)
[2018-12-11] MEDS ORDERED: MELO15TA39 PO (11:50)
[2018-12-11] MEDS ORDERED: VIT1CAPS44 PO (11:50)
[2018-12-11] MEDS ORDERED: UBID100C17 PO (11:50)
[2018-12-11] MEDS ORDERED: SENN-145 PO (11:50)
[2018-12-11] MEDS ORDERED: ATOR40TA70 PO (11:50)
[2018-12-11] MEDS ORDERED: MULT1TAB69 PO (11:50)
[2018-12-11] MEDS ORDERED: LORA10TA7 PO (11:50)
[2018-12-11] MEDS ORDERED: GLUC1TAB29 PO (11:50)
[2018-12-11] MEDS ORDERED: CHOL20003 PO (11:50)
[2018-12-11] MEDS ORDERED: CALC-6 PO ×2 (11:50→11:55)
[2018-12-11] MEDS ORDERED: MV,C400T2 PO (11:51)
[2018-12-11] MEDS ORDERED: LACT1CAP8 PO (11:51)
[2018-12-11] MEDS ORDERED: FISH1CAP15 PO (11:51)
--- NOTE | 2018-12-11 11:55 | NUR ---
SPOKE WITH PT (SHE HAD HER HOME MEDS) TO COMPLETE THE MED REC. PT WAS ABLE TO TELL ME ALL HER MEDICATIONS AND ALSO HOW SHE TAKES THEM. 09-06-2018 LISINOPRIL #90/90DS 09-06-2018 METOPROLOL #90/90DS 10-19-2018 MELOXICAM #30/30DS 11-17-2018 HCTZ #30/30DS 11-28-2018 ATORVASTATIN #90/90DS HER NEXT DOSE OF PROLIA IS DUE IN DECEMBER OTC MEDS: MULTIVITAMIN: 1 DAILY PRESERVISION AERD 2: 1 DAILY VIT D: 1 DAILY PROBIOTIC: 1 DAILY LORATADINE: 1 DAILY CALCIUM: 1 TAB EVERY OTHER DAY THEN ALTERNATE WITH 2 TABS EVERY OTHER DAY (TAKES ABOUT ELEVEN PER WEEK) GLUCOSAMINE: 1 BID COQ10: 1 DA8ILY FISH OIL: 1 TID ESTROVEN: 3 TIMES WEEKLY (MOD, WED, FRI) SENNA S: 1 DAILY ASPIRIN 81M DAILY
--- NOTE | 2018-12-11 12:10 | Cardiac Procedure Note-CS/ASA ---
Pre-Procedure Note Pre-Op Procedure Note H&P Reviewed The H&P was reviewed, patient examined and no changes noted. Date H&P Reviewed: Dec 11, 2018 Time H&P Reviewed: 12:09 Conscious Sedation Pre-Proced Time 12:09 ASA Score 3 For ASA 3 and 4: Consider anesthesia and medical clearance. Also, for patients with a history of failed moderate sedation consider anesthesia. Airway Lungs Heart ASA score ASA 1: a normal healthy patient ASA 2: a patient with a mild systemic disease (mid diabetes, controlled hypertension, obesity x ASA 3: a patient with a severe systemic disease that limits activity (angina, COPD, prior Myocardial infarction) ASA 4: a patient with an incapacitating disease that is a constant threat to life (CHF, renal failure) ASA 5: a moribund patient not expected to survive 24 hrs. (ruptured aneurysm) ASA 6: a declared brain- patient whose organs are being harvested. For emergent operations, add the letter E after the classification Mallampati Classification Grade 3 Sedation Plan Analgesia, Amnesia, Plan communicated to team members, Discussed options with patient/fam, Discussed risks with patient/fam The patient is an appropriate candidate to undergo the planned procedure, sedation, and anesthesia. The patient immediately re-assessed prior to indication. NOEL OMALLEY MD Dec 11, 2018 12:10
--- NOTE | 2018-12-11 12:12 | Cardiac Cath Report ---
Cardiac Cath Report Physician (s)/Nurse Intern (s) Physician NOEL OMALLEY MD Pre-Procedure Diagnosis Pre-Procedure Diagnosis: Coronary artery disease Post-Procedure Note Procedure Start Date: Dec 11, 2018 Name of Procedure: Left heart catheterization Findings/Procedure Note PROCEDURE NOTE: 68 years old lady with history of hypertension, hyperlipidemia, had an abnormal stress test, scheduled for cardiac catheterization possible PTCA. After explaining the procedure to the patient, all pros and cons were explained, all questions were answered. The patient signed the consent and then she was placed on the cardiac catheterization laboratory. Groin was prepped SL fashion local anesthesia was used. Sheath placed in the Right radial artery, [place] catheter was used to access the right and left coronary system adjusted left ventricular cavity pressure was measured no left ventricular gram was done, pullback LV to aorta was done. At the end of the procedure the sheath was removed. vascular band was used FINDINGS: Hemodynamics LV 161/21, end-diastolic pressure of 21 Aorta 156/75 mean of 107 ANATOMY: Left Main has mild disease nonobstructive disease Left Anterior Descending has mild disease nonobstructive disease Left Circumflex has mild disease nonobstructive disease Right Coronory Artery has mild disease nonobstructive disease LV Gram was not done, pressure was measured CONCLUSION: 1. Mild coronary artery disease with no obstructive disease 2. Mildly elevated left ventricular end-diastolic pressure DISCUSSION AND RECOMMENDATION: medical therapy is recommended no intervention is needed Anesthesia Type: Conscious Sedation Estimated blood loss (mL): 10 ml Contrast Amount: 30 ml Total Radiation Dose: 144 mGy Post-Procedure Diagnosis Post-operative diagnosis: Chest pain Coronary artery disease Hypertension Hyperlipidemia NOEL OMALLEY MD Dec 11, 2018 12:12
--- NOTE | 2018-12-11 12:14 | Discharge Inst-Post CATH ---
Discharge Inst-CATH/EP Problems Reviewed?: Yes Post Cardiac Cath/EP D/C Inst Follow Up/Plan Appointment with Dr. OMALLEY's office in 2-4 weeks <b>CARDIAC CATH/EP PROCEDURE DISCHARGE INSTRUCTIONS</b> ACTIVITY * Go Home directly and rest. * Limit activity of the leg (or wrist if it was used) for 7 days including aerobics, swimming, jogging, bicycling, etc. * Restrict stair-climbing for 7 days if possible, if not, climb up with your non-cath leg, then bring together on the same step. * Avoid lifting, pushing, pulling or excessive movement of the affected extremity for 7 days. * Customary sexual activity may be resumed after 2 days-use caution not to use a position that strains or causes pain to the affected extremity. * No driving for 24 hours. * NO SMOKING. * Avoid straining for bowel movements for 7 days. * Gentle walking on level ground is allowed. * Returning to work will depend on the type of procedure and the results. Your doctor will discuss this with you. CALL YOUR DOCTOR FOR ANY OF THE FOLLOWING: *If bleeding from the puncture site occurs- Apply gentle pressure to site with clean cloth and call your doctor or EMS. * If a knot or lump forms under the skin, increases in size, or causes pain. * If bruising appears to be worsening or moving further down your leg instead of disappearing. * Temperature above 101 F. CARE OF YOUR GROIN INCISION; * Bruising or purple discoloration of the skin near the puncture site is common. * You may shower only, no bathtub bathing for 5 days. Be careful to avoid slipping as your leg may feel stiff. * If a closure device was used on your femoral artery, please see the attached guide regarding care of the device and your leg. * Leave dressing on FOR 24 hours. CARE OF YOUR WRIST INCISION; * Bruising or purple discoloration of the skin near the puncture site is common. * You may shower. * DO NOT submerge wrist. * Leave dressing on FOR 24 hours. NOEL OMALLEY MD Dec 11, 2018 12:14
== END 2018-12-11 14:55 | disposition home or self-care (01) ==
LOC: CATH 10:47 → SDC 12:23 → CATH 14:55
PROVIDERS: ATTEND Internal Medicine Cardiovascular Disease
DX: I25.10 Atherosclerotic heart disease of native coronary artery without angina pectoris (principal); I10 Essential (primary) hypertension; E78.5 Hyperlipidemia, unspecified; R94.39 Abnormal result of other cardiovascular function study; I65.23 Occlusion and stenosis of bilateral carotid arteries; E66.9 Obesity, unspecified; Z68.29 Body mass index [BMI] 29.0-29.9, adult; Z88.2 Allergy status to sulfonamides; Z88.1 Allergy status to other antibiotic agents; Z79.82 Long term (current) use of aspirin; Z79.899 Other long term (current) drug therapy; Z80.9 Family history of malignant neoplasm, unspecified; Z82.49 Family history of ischemic heart disease and other diseases of the circulatory system
CPT/HCPCS: 36415; 71045; 80053; 80061; 85027; 85610; 85730; 87081; 93458

== ENCOUNTER → 2019-01-07 | Outpatient (CLI) | payer MEDICARE, OTHER ==
[~2019-01-07] VITALS: Ht 157.5 cm; Wt 71.8 kg
[~2019-01-07] MED LIST changes: +ASPI-983 PO; +ATOR40TA70 PO; +CALC-6 PO; +CHOL20003 PO; +DENOSUMAB 60 MG/1 ML (PROLIA) SQ SCH; +FISH1CAP15 PO; +GLUC1TAB29 PO; +HYDR25TA4 PO; +L.AC1CAP6 PO; +LACT1CAP8 PO; +LISI10TA2 PO; +MELO15TA39 PO; +MELO7.5T46 PO; +METO-387 PO; +MULT1TAB69 PO; +MV,C400T2 PO; +OMEG-154 PO; +POTA-51 PO; +SENN-145 PO; +VIT1CAPS44 PO
--- NOTE | 2019-01-07 12:25 | NUR ---
PRESENTS FOR PROLIA INJECTION ORDERED EVERY 6 MONTHS. STATES SHE HAD LEFT TOTAL KNEE REPLACEMENT ON 12/24/18 (2 WEEKS FROM CURRENT DATE) AND IS ASKING IF THIS MEDICATION IS SAFE TO GET THIS SOON AFTER SURGERY. CONTACTED PHARMACIST, AI HOLLY, AND SHE ADVISED TO CONTACT ORDERING PHYSICIAN, DR WILHELM, FOR APPROVAL.
[2019-01-07 13:30] VITALS: BP 105/71
--- NOTE | 2019-01-07 13:35 | NUR ---
HAVE BEEN ATTEMPTING TO CONTACT DR WILHELM'S OFFICE, ANSWERING MACHINE ONLY. DISCUSSED WITH PT THAT THIS MEDICATION CAN LOWER SERUM CALCIUM LEVELS AND LOWER IMMUNITY TO INFECTION ACCORDING TO LITERATURE. PT STATED ON ADMISSION SHE HAS BEEN OFF HER CALCIUM SINCE BEFORE SURGERY ON 12/24 AND IS NOT COMFORTABLE PROCEEDING WITH PROLIA INJECTION TODAY. STATES SHE WILL SEE DR YEPEZ TOMORROW, 01/08/19, FOR HER POST OP CHECK UP AND WILL ASK HIM IF HE FEELS THIS MEDICATION IS CONTRAINDICATED AT THIS TIME IN HER POST OP RECOVERY PERIOD. WILL ALSO CHECK WITH DR WILHELM WHEN HE IS AVAILABLE IN OFFICE TOMORROW AND PT STATES SHE WILL RETURN FOR THE PROLIA INJECTION WHEN OK WITH DR WILHELM AND DR YEPEZ. DISMISSED AMB USING CANE ACCOMPANIED BY FRIEND.
[2019-01-08 10:58] VITALS: BP 120/59
== END ==
LOC: SDC 12:28
PROVIDERS: ATTEND Internal Medicine
DX: M81.0 Age-related osteoporosis without current pathological fracture (principal)

== ENCOUNTER 2019-03-14 10:02 | Outpatient (RCR) | payer MEDICARE, OTHER ==
[~2019-03-14 10:02] MED LIST changes: -DENOSUMAB 60 MG/1 ML (PROLIA) SQ SCH
== END 2019-03-14 15:29 | disposition home or self-care (01) ==
PROVIDERS: ATTEND Orthopaedic Surgery
DX: R26.89 Other abnormalities of gait and mobility (principal); M25.462 Effusion, left knee; Z96.652 Presence of left artificial knee joint

== ENCOUNTER → 2019-05-07 | Outpatient (CLI) | payer MEDICARE, OTHER ==
[~2019-05-07] MED LIST changes: -METO-387 PO; +MTP25TSR PO
--- NOTE | 2019-05-07 09:27 | Diagnostic Imaging Report ---
INDICATION: Six-month followup left breast density. COMPARISON: Correlation is made with the prior mammograms of 11/08/2018, 11/07/2018, and 11/05/2017. TECHNIQUE: Unilateral left 2D and 3D diagnostic mammography was performed with CAD. FINDINGS: The left breast remains heterogeneously dense, limiting the sensitivity of mammography. There is a persistent nodular density in the upper left breast approximately 7 to 8 cm from the nipple. This is at the nipple line on the CC view at posterior depth. Further evaluation with ultrasound will be reattempted today. No suspicious microcalcifications are seen. There are benign calcifications. IMPRESSION: Persistent density in the superior left breast at posterior depth. Further evaluation of this area with ultrasound will be performed today. ACR BI-RADS Category 0: Incomplete. (Needs additional imaging evaluation). Result letter will be mailed to the patient. Note: At least 10% of breast cancer is not imaged by mammography. Dictated by: Dictated on workstation # [id number]
--- NOTE | 2019-05-07 10:37 | Diagnostic Imaging Report ---
INDICATION: Left breast density. Study is performed for further evaluation. COMPARISON: Correlation is made with diagnostic mammogram earlier the same day as well as prior left breast ultrasound from 11/08/2018. FINDINGS: Sonographic interrogation of the upper left breast was performed. At the 11 o'clock location of the left breast, approximately 7 cm from the nipple, there is a somewhat irregular hypoechoic nodule measuring 6 mm x 6 mm x 3 mm. This appears to be near the chest wall. This likely accounts for the mammographic density. No definite internal vascularity is present. Previously noted tiny cyst at 11:30 location of the left breast, 4 cm from the nipple, is again noted measuring 4 mm. No other masses are seen. IMPRESSION: 6 mm hypoechoic nodule at 11 o'clock location of the left breast, 7 cm from the nipple. This likely accounts for the mammographic density. Small breast neoplasm cannot be entirely excluded. Tissue sampling is recommended. This would be amenable to ultrasound-guided biopsy. ACR BI-RADS Category 4: Suspicious abnormality. Dictated by: Dictated on workstation # [id number]
== END ==
LOC: RAD 09:04
PROVIDERS: ATTEND Internal Medicine
DX: N63.22 Unspecified lump in the left breast, upper inner quadrant (principal)
CPT/HCPCS: 76642

== ENCOUNTER → 2019-05-15 | Outpatient (CLI) | payer MEDICARE, OTHER ==
[~2019-05-15] VITALS: Ht 154.9 cm; Wt 68.2 kg
[~2019-05-15] MED LIST changes: +LIDOCAINE 1% INJ 20 ML 20 ML VIAL INJ ONE
--- NOTE | 2019-05-15 10:29 | Diagnostic Imaging Report ---
INDICATION: Left breast nodule. Patient presents for ultrasound-guided biopsy. Patient was brought to the procedure room and placed on the table in the supine position. Left arm was raised. Ultrasound imaging over the left breast was performed to evaluate appropriate entry site. The left breast was then prepped and draped in usual sterile fashion. Small amount of 1% lidocaine was utilized for local anesthesia. A total of 3 passes were made into an ill-defined region of hypoechogenicity at the 11:00 location of the left breast, 7 cm from the nipple, utilizing a 14-gauge Achieve needle. A marker clip was then deployed. Hemostasis was obtained using manual compression. Patient tolerated the procedure well and left the Department in stable condition. Patient was unable to obtain a postprocedure mammogram due to mammogram machine being down. Patient will return once the machine is repaired and two-view mammogram will be performed. IMPRESSION: Ultrasound-guided core biopsy of the hypoechoic nodule at 11:00 location left breast, 7 cm from the nipple. Pathology results are currently pending. Dictated by: Dictated on workstation # [id number]
== END ==
LOC: RAD 08:35
PROVIDERS: ATTEND Internal Medicine
DX: C50.212 Malignant neoplasm of upper-inner quadrant of left female breast (principal)
CPT/HCPCS: 19083; 88305; 88360

== ENCOUNTER → 2019-05-19 | Outpatient (CLI) | payer MEDICARE, OTHER ==
[~2019-05-19] MED LIST changes: -LIDOCAINE 1% INJ 20 ML 20 ML VIAL INJ ONE
--- NOTE | 2019-05-19 12:25 | Diagnostic Imaging Report ---
INDICATION: Status post left breast biopsy. This procedure was performed to evaluate the biopsy clip. TECHNIQUE: Unilateral left 2D CC and MLO mammography was performed. The mammogram had to be performed on a different day due to the mammography unit going down on the day of the procedure. FINDINGS: A biopsy clip in the upper and slightly outer left breast at posterior depth is noted. The clip is in the region of the spiculated density noted on prior mammograms. IMPRESSION: Post biopsy changes in the left breast with a localizer clip in place. Dictated by: Dictated on workstation # [id number]
== END ==
LOC: RAD 10:45
DX: Z98.890 Other specified postprocedural states (principal)

== ENCOUNTER 2019-05-23 11:13 | Outpatient (RCR) | payer MEDICARE, OTHER | END 2019-08-21 | disposition home or self-care (01) | LOC: ONC 11:13 | PROVIDERS: ATTEND Internal Medicine Hematology & Oncology | DX: C50.212 Malignant neoplasm of upper-inner quadrant of left female breast (principal) ==

== ENCOUNTER → 2019-07-09 | Outpatient (CLI) | payer MEDICARE, OTHER ==
[~2019-07-09] MED LIST changes: +DENOSUMAB 60 MG/1 ML (PROLIA) SQ SCH
[2019-07-09 12:58] VITALS: BP 112/67
== END ==
LOC: SDC 12:58
PROVIDERS: ATTEND Internal Medicine
DX: M81.0 Age-related osteoporosis without current pathological fracture (principal)
CPT/HCPCS: 96372

== ENCOUNTER 2019-08-02 16:29 | Emergency (ER) | payer MEDICARE, OTHER ==
[~2019-08-02] VITALS: Ht 154 cm; Wt 70.4 kg
[~2019-08-02 16:29] MED LIST changes: -DENOSUMAB 60 MG/1 ML (PROLIA) SQ SCH
[2019-08-02] MEDS ORDERED: LIDOCAINE/EPI 2% 1:100,00 (XYLOCAINE) 20 ML VIAL ONE (16:33)
--- NOTE | 2019-08-02 17:20 | ED Fall/Injury ---
General Chief Complaint: Lower Extremity Stated Complaint: FALL - L KNEE PAIN / LAC Nursing Triage Note: TO ROOM PER W/C WAS IN [employer] WAS LEAVING STORE TRIPPED AND FELL LANDING ON L KNEE. SM LACERATION TO KNEE. CONCERN BECAUSE HAD A TOTAL KNEE IN OC. LACERATION OVER INCISION ON KNEE Source: patient Exam Limitations: no limitations History of Present Illness Date Seen by Provider: August 02, 2019 Time Seen by Provider: 16:40 Initial Comments This 69-year-old woman presents to the emergency room with a left knee injury after tripping and falling at a department store. She has a around the inferior patella and a laceration on her knee replacement scar. This wound has bled profusely although it is a fairly shallow wound. Patient takes aspirin. She does not know when her last tetanus shot was. She has minor soreness to her hands and chest. She did not strike her head. Allergies and Home Medications Allergies Coded Allergies: sulfamethoxazole (Verified Allergy, Mild, Rash, 12/11/18) AND UPSET STOMACH trimethoprim (Verified Allergy, Mild, Rash, 12/11/18) AND UPSET STOMACH Home Medications Aspirin 81 Mg Tablet.dr, 81 MG PO 1800, (Reported) Atorvastatin Calcium 20 Mg Tablet, 20 MG PO DAILY, (Reported) Calcium Carbonate/Vitamin D3 1 Each Tablet, 2 EACH PO Q48H, (Reported) TAKES 2 TAB EVERY OTHER DAY, THEN ALTERNATES WITH 1 T THE OTHER DAYS- TAKE ABOUT 11 TABS PER WEEK Calcium Carbonate/Vitamin D3 1 Each Tablet, 1 EACH PO Q48H, (Reported) TAKES 2 TAB EVERY OTHER DAY, THEN ALTERNATES WITH 1 T THE OTHER DAYS- TAKE ABOUT 11 TABS PER WEEK Cholecalciferol (Vitamin D3) 2,000 Unit Capsule, 2,000 UNIT PO DAILY, (Reported) Denosumab 60 Mg/1 Ml Disp.syrin, 60 MG SQ UD, (Reported) TAKES TWICE YEARLY (JUNE AND DECEMBER) Gluc/Brady-MSM#1/Vit C/Wei/Bor 1 Each Tablet, 1 EACH PO BID, (Reported) Hydrochlorothiazide 25 Mg Tablet, 25 MG PO DAILY, (Reported) L.acidoph & Paracasei,B.lactis 1 Each Capsule, 1 CAP PO DAILY, (Reported) Lisinopril 10 Mg Tablet, 10 MG PO 1800, (Reported) Loratadine 10 Mg Tablet, 10 MG PO DAILY, (Reported) Meloxicam 7.5 Mg Tablet, 7.5 MG PO DAILY, (Reported) Metoprolol Succinate 25 Mg Tab.er.24h, 25 MG PO 1200, (Reported) Multivitamin 1 Each Tablet, 1 EACH PO DAILY, (Reported) Mv,Ca,Min/FA/Herbal No.157 400 Mcg Tablet, 400 MCG PO MO,WE,FR, (Reported) [place]-3S/Dha/Epa/Fish Oil 1 Each Capsule.dr, 3 CAP PO DAILY, (Reported) Potassium Chloride 20 Meq Tablet.er, 20 MEQ PO DAILY, (Reported) Sennosides/Docusate Sodium 1 Each Tablet, 1 EACH PO 1200, (Reported) Ubidecarenone 100 Mg Capsule, 100 MG PO DAILY, (Reported) Vit C/E/Zn/Coppr/Lutein/Zeaxan 1 Each Capsule, 1 EACH PO DAILY, (Reported) Patient Home Medication List Home Medication List Reviewed: Yes Review of Systems Review of Systems Constitutional: no symptoms reported Eyes: No Symptoms Reported Ears, Nose, Mouth, Throat: no symptoms reported Respiratory: no symptoms reported Cardiovascular: no symptoms reported Gastrointestinal: no symptoms reported Genitourinary: no symptoms reported Musculoskeletal: see HPI Skin: see HPI Psychiatric/Neurological: No Symptoms Reported Past Vadmhlm-Xdfhlv-Hvrvcv Hx Patient Social History Alcohol Use: Denies Use Number of Drinks Today: Alcohol Beverage of Choice: Wine Recreational Drug Use: No 2nd Hand Smoke Exposure: No Recent Foreign Travel: No Contact w/Someone Who Travel: No Recent Infectious Disease Expo: No Recent Hopitalizations: No Immunizations Up To Date Tetanus Booster (TDap): Unknown Seasonal Allergies Seasonal Allergies: Yes Past Medical History Surgeries: Yes Adenoidectomy, Breast (left lumpectomy), Section, Joint Replacement (left knee), Orthopedic, Tonsillectomy Respiratory: No Cardiac: Yes High Cholesterol, Hypertension Neurological: No Reproductive Disorders: No FIBER ARTIST History: Menopausal Genitourinary: No Gastrointestinal: No Musculoskeletal: Yes Arthritis Endocrine: No HEENT: No Cancer: No Psychosocial: No Blood Disorders: No Physical Exam Vital Signs Vital Signs - First Documented 08/02/19 16:32 Pulse 73 Resp 18 B/P (MAP) 144/51 (82) Pulse Ox 97 O2 Delivery Room Air Capillary Refill : Less Than 3 Seconds Height, Weight, BMI Height: 5'2.00" Weight: 146lbs. 0.0oz. [id number]; 29.00 BMI Method:Stated General Appearance: WD/WN, no apparent distress HEENT: normal ENT inspection Respiratory: no respiratory distress Extremities: other (tenderness and swelling over the inferior anterior portion of the left knee. There are abrasions and a 2 cm laceration directly over the knee replacement scar. 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 Skin was then wiped clean with alcohol. Wound was anesthetized with injections of lidocaine with epinephrine. Betadine prep was then applied and three 4-0 Prolene sutures were applied. The center suture was a figure 8 in the sutures on the periphery were simple interrupted sutures. Hemostasis was achieved. Anabolic ointment was applied to prevent wound dressing from sticking. A bulky gauze with Coban and was applied as a pressure dressing. Progress/Results/Core Measures Results/Orders My Orders Orders - ROSALINDA LEAL MD Lidocaine/Epi 2% 1:100,000 (Xylocaine/Ep (08/02/19 16:33) Knee, Left, 3 Views (08/02/19 17:12) Dipht,Pertuss(Acell),Tet Adult (Boostrix (08/02/19 17:30) Medications Given in ED Current Medications Medications Dose Ordered Sig/Jennifer Route Start Time Stop Time Status Last Admin Dose Admin Diphtheria/ Tetanus/Acell Pertussis 0.5 ml ONCE ONCE IM 08/02/19 17:30 08/02/19 17:31 DC 08/02/19 17:37 0.5 ML Lidocaine/ Epinephrine 20 ml STK-MED ONCE .ROUTE 08/02/19 16:33 08/02/19 16:41 DC 08/02/19 17:37 20 ML Vital Signs/I&O 08/02/19 16:32 Pulse 73 Resp 18 B/P (MAP) 144/51 (82) Pulse Ox 97 O2 Delivery Room Air Blood Pressure Mean: 82 Diagnostic Imaging Diagonstic Imaging: Xray Plain Films/CT/US/NM/MRI: knee Comments Knee x-ray viewed by me and report reviewed. See report below: NAME: JOE[facility] LARSON [facility] REC#: [id number] PT STATUS: REG ER : 1950 PHYSICIAN: ROSALINDA LEAL MD ADMIT DATE: 08/02/19/ER Draft Date of Exam:08/02/19 KNEE, LEFT, 3 VIEWS INDICATION: Fall with pain, COMPARISON: I have no comparison study. EXAMINATION: Three views of the left knee. FINDINGS: Total knee arthroplasty has been performed. The hardware appears intact and positioned anatomically. The residual bony structures show no fracture. The lateral view shows no appreciable loose body or joint effusion. IMPRESSION: Three-view left knee shows knee replacement, otherwise negative. Dictated on workstation # [id number] Dict: 08/02/19 1727 Trans: 08/02/19 1731 [facility] [id number] Interpreted by: MAYKEL FORD Departure Impression Primary Impression: Laceration of left knee Qualified Codes: S81.012A - Laceration without foreign body, left knee, initial encounter Additional Impressions: Contusion of left knee Qualified Codes: S80.02XA - Contusion of left knee, initial encounter Fall on same level from tripping as cause of accidental injury Disposition: HOME, SELF-CARE Condition: Improved Departure-Patient Inst. Decision time for Depature: 17:27 Referrals: MORALES WILHELM MD (PCP/Family) Primary Care Physician Patient Instructions: Laceration Repair With Stitches (DC) Add. Discharge Instructions: Your knee x-ray showed no fractures or dislocations. Keep the wound clean and dry except for normal showering. Avoid full range of motion and excessive bending of the knee until sutures are removed. Elevation, icing, and compressive wrapping should help with both oozing of blood and swelling. You may take Tylenol (acetaminophen) up to 1000 mg every 6 hours as needed for pain. Ibuprofen up to 600 mg every 6 hours may also be used but may increase bleeding in initial stages of healing. Hold your aspirin for 3 days to help prevent bleeding. Return to the emergency room in 10-14 days to have your sutures removed. Monitor the wound for signs of infection such as increasing redness, increasing swelling, fever, or puslike drainage. Return to care if you notice these symptoms. All discharge instructions reviewed with patient and/or family. Voiced understanding. ROSALINDA LEAL MD August 02, 2019 17:20
[2019-08-02] MEDS ORDERED: TETANUS,DIPTH,PERTUSS P/F (BOOSTRIX) 0.5 ML VIAL IM ONE (17:30)
--- NOTE | 2019-08-02 17:32 | Diagnostic Imaging Report ---
INDICATION: Fall with pain, COMPARISON: I have no comparison study. EXAMINATION: Three views of the left knee. FINDINGS: Total knee arthroplasty has been performed. The hardware appears intact and positioned anatomically. The residual bony structures show no fracture. The lateral view shows no appreciable loose body or joint effusion. IMPRESSION: Three-view left knee shows knee replacement, otherwise negative. Dictated by: Dictated on workstation # [id number]
[2019-08-02 17:54] VITALS: BP 118/78
== END 2019-08-02 17:49 | disposition home or self-care (01) ==
LOC: EDUNIT# 16:29 → ER 16:30
DX: S81.012A Laceration without foreign body, left knee, initial encounter (principal); I10 Essential (primary) hypertension; E78.00 Pure hypercholesterolemia, unspecified; Z88.2 Allergy status to sulfonamides; Z88.1 Allergy status to other antibiotic agents; Z79.82 Long term (current) use of aspirin; Z23 Encounter for immunization; W01.0XXA Fall on same level from slipping, tripping and stumbling without subsequent striking against object, initial encounter; Y92.512 Supermarket, store or market as the place of occurrence of the external cause
CPT/HCPCS: 12011; 73562; 90715

== ENCOUNTER 2019-09-04 14:35 | Outpatient (RCR) | payer MEDICARE, OTHER ==
[~2019-09-04 14:35] MED LIST changes: +MULT-567 PO; -MULT1TAB69 PO
== END 2019-09-22 15:14 | disposition home or self-care (01) ==
LOC: ONC 14:35
PROVIDERS: ATTEND Internal Medicine Hematology & Oncology
DX: D05.02 Lobular carcinoma in situ of left breast (principal); Z98.890 Other specified postprocedural states
CPT/HCPCS: 99204; 99214

== ENCOUNTER 2019-09-10 08:29 | Outpatient (RCR) | payer MEDICARE, OTHER | END 2019-09-10 09:19 | disposition home or self-care (01) | PROVIDERS: ATTEND Nurse Practitioner Family | DX: S80.02XA Contusion of left knee, initial encounter (principal); Z96.652 Presence of left artificial knee joint ==

== ENCOUNTER 2019-10-13 10:48 | Outpatient (RCR) | payer MEDICARE, OTHER ==
[2019-09-04 14:46] LABS: BASOPHILS % (AUTO) 0 % (0-10); EOSINOPHILS # (AUTO) 0.2 10^3/uL (0.0-0.3); EOSINOPHILS % (AUTO) 3 % (0-10); HEMATOCRIT 38 % (35-52); HEMOGLOBIN 12.7 G/DL (11.5-16.0); LYMPHOCYTES # (AUTO) 1.2 X 10^3 (1.0-4.0); LYMPHOCYTES % (AUTO) 20 % (12-44); MEAN CORPUSCULAR HEMOGLOBIN 32 PG (25-34); MEAN CORPUSCULAR HGB CONC 33 G/DL (32-36); MEAN CORPUSCULAR VOLUME 95 FL (80-99); MEAN PLATELET VOLUME 10.7 FL (7.4-10.4); MONOCYTES # (AUTO) 0.6 X 10^3 (0.0-1.0); MONOCYTES % (AUTO) 10 % (0-12); NEUTROPHILS # (AUTO) 3.8 X 10^3 (1.8-7.8); NEUTROPHILS % (AUTO) 66 % (42-75); PLATELET COUNT 183 10^3/uL (130-400); WHITE BLOOD COUNT 5.8 10^3/uL (4.3-11.0)
[2019-09-04 14:58] LABS: ALBUMIN 4.3 GM/DL (3.2-4.5); CHLORIDE 102 MMOL/L (98-107); POTASSIUM 3.6 MMOL/L (3.6-5.0); SODIUM 142 MMOL/L (135-145)
[2019-09-04 14:59] LABS: CALCIUM 10.3 MG/DL (8.5-10.1)
[2019-09-04 15:00] LABS: GLUCOSE 95 MG/DL (70-105); TOTAL PROTEIN 6.6 GM/DL (6.4-8.2)
[2019-09-04 15:01] LABS: CARBON DIOXIDE 32 MMOL/L (21-32)
[2019-09-04 15:02] LABS: BILIRUBIN,TOTAL 1.2 MG/DL (0.1-1.0)
[2019-09-04 15:04] LABS: ALKALINE PHOSPHATASE 56 U/L (40-136); CREATININE SERUM 0.86 MG/DL (0.60-1.30); GFR ESTIMATED > 60
[2019-09-04 15:05] LABS: BUN/CREATININE RATIO 20
[2019-09-04 15:07] LABS: ALANINE AMINOTRANSFERASE 17 U/L (0-55)
[~2019-10-13 10:48] MED LIST changes: +ASPI-1238 PO; -ASPI-983 PO
[2019-10-13 11:04] LABS: BASOPHILS % (AUTO) 1 % (0-10); EOSINOPHILS # (AUTO) 0.1 10^3/uL (0.0-0.3); EOSINOPHILS % (AUTO) 3 % (0-10); HEMATOCRIT 39 % (35-52); LYMPHOCYTES # (AUTO) 0.9 X 10^3 (1.0-4.0); LYMPHOCYTES % (AUTO) 20 % (12-44); MEAN CORPUSCULAR HEMOGLOBIN 31 PG (25-34); MEAN CORPUSCULAR HGB CONC 34 G/DL (32-36); MEAN CORPUSCULAR VOLUME 94 FL (80-99); MEAN PLATELET VOLUME 11.4 FL (7.4-10.4); MONOCYTES # (AUTO) 0.6 X 10^3 (0.0-1.0); MONOCYTES % (AUTO) 13 % (0-12); NEUTROPHILS # (AUTO) 3.1 X 10^3 (1.8-7.8); NEUTROPHILS % (AUTO) 65 % (42-75); PLATELET COUNT 166 10^3/uL (130-400); WHITE BLOOD COUNT 4.8 10^3/uL (4.3-11.0)
[2019-10-13 11:26] LABS: ALANINE AMINOTRANSFERASE 26 U/L (0-55); ALBUMIN 4.2 GM/DL (3.2-4.5); ALKALINE PHOSPHATASE 67 U/L (40-136); BILIRUBIN,TOTAL 1.2 MG/DL (0.1-1.0); BUN/CREATININE RATIO 24; CALCIUM 9.4 MG/DL (8.5-10.1); CARBON DIOXIDE 28 MMOL/L (21-32); CHLORIDE 105 MMOL/L (98-107); CREATININE SERUM 0.78 MG/DL (0.60-1.30); GFR ESTIMATED > 60; GLUCOSE 95 MG/DL (70-105); POTASSIUM 3.7 MMOL/L (3.6-5.0); SODIUM 142 MMOL/L (135-145); TOTAL PROTEIN 6.6 GM/DL (6.4-8.2)
== END 2019-12-03 | disposition home or self-care (01) ==
LOC: ONC 10:48
PROVIDERS: ATTEND Internal Medicine Hematology & Oncology
DX: C50.212 Malignant neoplasm of upper-inner quadrant of left female breast (principal); I10 Essential (primary) hypertension; E78.2 Mixed hyperlipidemia; M85.88 Other specified disorders of bone density and structure, other site; Z90.12 Acquired absence of left breast and nipple; Z92.3 Personal history of irradiation; Z80.3 Family history of malignant neoplasm of breast; Z80.41 Family history of malignant neoplasm of ovary; Z80.42 Family history of malignant neoplasm of prostate; Z87.310 Personal history of (healed) osteoporosis fracture
CPT/HCPCS: 80053; 82306; 85025; G0463; 99213

== ENCOUNTER 2019-12-30 11:04 | Outpatient (RCR) | payer MEDICARE, OTHER ==
[~2019-12-30 11:04] MED LIST changes: +AMLO-250 PO; -AMLO5TAB9 PO; -CALC-6 PO; +CALC1TAB84 PO
[2019-12-30 11:15] LABS: BASOPHILS % (AUTO) 0 % (0-10); EOSINOPHILS # (AUTO) 0.1 10^3/uL (0.0-0.3); EOSINOPHILS % (AUTO) 1 % (0-10); HEMATOCRIT 40 % (35-52); HEMOGLOBIN 13.2 g/dL (11.5-16.0); LYMPHOCYTES # (AUTO) 1.2 10^3/uL (1.0-4.0); LYMPHOCYTES % (AUTO) 19 % (12-44); MEAN CORPUSCULAR HEMOGLOBIN 30 pg (25-34); MEAN CORPUSCULAR HGB CONC 33 g/dL (32-36); MEAN CORPUSCULAR VOLUME 92 fL (80-99); MEAN PLATELET VOLUME 10.9 fL (9.0-12.2); MONOCYTES # (AUTO) 0.6 10^3/uL (0.0-1.0); MONOCYTES % (AUTO) 9 % (0-12); NEUTROPHILS # (AUTO) 4.3 10^3/uL (1.8-7.8); NEUTROPHILS % (AUTO) 70 % (42-75); PLATELET COUNT 209 10^3/uL (130-400); WHITE BLOOD COUNT 6.1 10^3/uL (4.3-11.0)
[2019-12-30 11:32] LABS: ALANINE AMINOTRANSFERASE 17 U/L (0-55); ALBUMIN 4.2 GM/DL (3.2-4.5); ALKALINE PHOSPHATASE 69 U/L (40-136); BILIRUBIN,TOTAL 1.5 MG/DL (0.1-1.0); BUN/CREATININE RATIO 17; CARBON DIOXIDE 28 MMOL/L (21-32); CHLORIDE 102 MMOL/L (98-107); CREATININE SERUM 0.77 MG/DL (0.60-1.30); GFR ESTIMATED > 60; GLUCOSE 101 MG/DL (70-105); POTASSIUM 4.1 MMOL/L (3.6-5.0); SODIUM 139 MMOL/L (135-145); TOTAL PROTEIN 6.9 GM/DL (6.4-8.2)
[2019-12-30] MEDS ORDERED: DENOSUMAB 60 MG/1 ML (PROLIA) CANCER CTR SQ SCH (12:00)
== END 2020-03-26 08:03 | disposition home or self-care (01) ==
LOC: ONC 11:04
PROVIDERS: ATTEND Internal Medicine Hematology & Oncology
DX: C50.912 Malignant neoplasm of unspecified site of left female breast (principal); I10 Essential (primary) hypertension; E78.2 Mixed hyperlipidemia; M85.88 Other specified disorders of bone density and structure, other site; Z90.12 Acquired absence of left breast and nipple; Z92.3 Personal history of irradiation; Z80.3 Family history of malignant neoplasm of breast; Z80.41 Family history of malignant neoplasm of ovary; Z80.42 Family history of malignant neoplasm of prostate; Z87.310 Personal history of (healed) osteoporosis fracture; Z79.811 Long term (current) use of aromatase inhibitors
CPT/HCPCS: 80053; 85025; 96372; G0463

== ENCOUNTER → 2020-04-06 | Outpatient (CLI) | payer MEDICARE, OTHER ==
[~2020-04-06] MED LIST changes: -LISI-552 PO; -LISI10TA2 PO; +LISI10TA25 PO; +LISI20TA26 PO
[2020-04-06 11:12] LABS: BASOPHILS # (AUTO) 0.1 10^3/uL (0.0-0.1); BASOPHILS % (AUTO) 1 % (0-10); EOSINOPHILS # (AUTO) 0.1 10^3/uL (0.0-0.3); EOSINOPHILS % (AUTO) 2 % (0-10); HEMATOCRIT 42 % (35-52); HEMOGLOBIN 13.7 g/dL (11.5-16.0); LYMPHOCYTES # (AUTO) 1.2 10^3/uL (1.0-4.0); LYMPHOCYTES % (AUTO) 22 % (12-44); MEAN CORPUSCULAR HEMOGLOBIN 31 pg (25-34); MEAN CORPUSCULAR HGB CONC 33 g/dL (32-36); MEAN CORPUSCULAR VOLUME 93 fL (80-99); MEAN PLATELET VOLUME 11.3 fL (9.0-12.2); MONOCYTES # (AUTO) 0.4 10^3/uL (0.0-1.0); MONOCYTES % (AUTO) 7 % (0-12); NEUTROPHILS # (AUTO) 3.8 10^3/uL (1.8-7.8); NEUTROPHILS % (AUTO) 68 % (42-75); PLATELET COUNT 193 10^3/uL (130-400); WHITE BLOOD COUNT 5.6 10^3/uL (4.3-11.0)
[2020-04-06 11:27] LABS: ALANINE AMINOTRANSFERASE 29 U/L (0-55); ALBUMIN 4.3 GM/DL (3.2-4.5); ALKALINE PHOSPHATASE 61 U/L (40-136); BILIRUBIN,TOTAL 1.1 MG/DL (0.1-1.0); BUN/CREATININE RATIO 22; CALCIUM 9.4 MG/DL (8.5-10.1); CARBON DIOXIDE 25 MMOL/L (21-32); CHLORIDE 105 MMOL/L (98-107); CREATININE SERUM 0.78 MG/DL (0.60-1.30); GFR ESTIMATED > 60; GLUCOSE 98 MG/DL (70-105); POTASSIUM 3.8 MMOL/L (3.6-5.0); SODIUM 140 MMOL/L (135-145); TOTAL PROTEIN 6.8 GM/DL (6.4-8.2)
== END ==
LOC: ONC 10:48
PROVIDERS: ATTEND Internal Medicine Hematology & Oncology
DX: C50.412 Malignant neoplasm of upper-outer quadrant of left female breast (principal); M85.80 Other specified disorders of bone density and structure, unspecified site; Z79.811 Long term (current) use of aromatase inhibitors; Z92.3 Personal history of irradiation; I10 Essential (primary) hypertension; E78.2 Mixed hyperlipidemia
CPT/HCPCS: 80053; 85025; G0463; 99213

== ENCOUNTER → 2020-07-06 | Outpatient (CLI) | payer MEDICARE, OTHER ==
[~2020-07-06] MED LIST changes: +DENOSUMAB 60 MG/1 ML (PROLIA) CANCER CTR SQ SCH
[2020-07-06 10:46] LABS: BASOPHILS % (AUTO) 0 % (0-10); EOSINOPHILS # (AUTO) 0.1 10^3/uL (0.0-0.3); EOSINOPHILS % (AUTO) 2 % (0-10); HEMATOCRIT 41 % (35-52); HEMOGLOBIN 13.2 g/dL (11.5-16.0); LYMPHOCYTES # (AUTO) 1.3 10^3/uL (1.0-4.0); LYMPHOCYTES % (AUTO) 26 % (12-44); MEAN CORPUSCULAR HEMOGLOBIN 31 pg (25-34); MEAN CORPUSCULAR HGB CONC 32 g/dL (32-36); MEAN CORPUSCULAR VOLUME 95 fL (80-99); MEAN PLATELET VOLUME 11.4 fL (9.0-12.2); MONOCYTES # (AUTO) 0.5 10^3/uL (0.0-1.0); MONOCYTES % (AUTO) 10 % (0-12); NEUTROPHILS % (AUTO) 61 % (42-75); PLATELET COUNT 192 10^3/uL (130-400)
[2020-07-06 11:00] LABS: ALANINE AMINOTRANSFERASE 22 U/L (0-55); ALBUMIN 4.3 GM/DL (3.2-4.5); ALKALINE PHOSPHATASE 53 U/L (40-136); BILIRUBIN,TOTAL 2.1 MG/DL (0.1-1.0); BUN/CREATININE RATIO 19; CALCIUM 10.3 MG/DL (8.5-10.1); CARBON DIOXIDE 28 MMOL/L (21-32); CHLORIDE 102 MMOL/L (98-107); CREATININE SERUM 0.88 MG/DL (0.60-1.30); GFR ESTIMATED > 60; GLUCOSE 121 MG/DL (70-105); POTASSIUM 4.1 MMOL/L (3.6-5.0); SODIUM 139 MMOL/L (135-145); TOTAL PROTEIN 6.9 GM/DL (6.4-8.2)
== END ==
LOC: ONC 10:25
PROVIDERS: ATTEND Internal Medicine Hematology & Oncology
DX: C50.412 Malignant neoplasm of upper-outer quadrant of left female breast (principal); C79.51 Secondary malignant neoplasm of bone
CPT/HCPCS: 80053; 85025; 96372; G0463; 99213

== ENCOUNTER 2020-07-22 11:19 | Outpatient (RCR) | payer MEDICARE, OTHER ==
[~2020-07-22 11:19] MED LIST changes: -DENOSUMAB 60 MG/1 ML (PROLIA) CANCER CTR SQ SCH
== END 2020-07-22 12:12 | disposition home or self-care (01) ==
PROVIDERS: ATTEND Orthopaedic Surgery
DX: M54.41 Lumbago with sciatica, right side (principal)

== ENCOUNTER 2020-07-29 07:33 | Outpatient (CLI) | payer MEDICARE, OTHER ==
[~2020-07-29] VITALS: Ht 152.4 cm; Wt 70.4 kg
[2020-07-29] MEDS ORDERED: LETR2.5T6 PO (08:54)
== END 2020-07-29 12:39 | disposition home or self-care (01) ==
LOC: PREOP 07:33
PROVIDERS: ATTEND Internal Medicine
DX: Z01.818 Encounter for other preprocedural examination (principal)

== ENCOUNTER 2020-07-30 09:58 | Day surgery (SDC) | payer MEDICARE, OTHER ==
[~2020-07-30] VITALS: Ht 152.4 cm; Wt 70.4 kg
[~2020-07-30 09:58] MED LIST changes: +LETR2.5T6 PO
[2020-07-30] MEDS ORDERED: LACTATED RINGERS 1,000 ML IV STA (10:13)
[2020-07-30] MEDS ORDERED: LACTATED RINGERS 1,000 ML IV ONE (10:14)
[2020-07-30 10:15] VITALS: BP 135/65
[2020-07-30] MEDS ORDERED: HURRICAINE EXT TUBE (BENZOCAINE) XX PRN (10:15)
[2020-07-30] MEDS ORDERED: LIDOCAINE JELLY 2% 6 ML SYRINGE MM PRN (10:15)
[2020-07-30] MEDS ORDERED: PROPOFOL INJECTION 50 ML IV ONE ×2 (11:15→11:40)
[2020-07-30] MEDS ORDERED: MIDAZOLAM 2 MG/2 ML (VERSED) VIAL ONE (11:15)
[2020-07-30] MEDS ORDERED: HURRICAINE EXT TUBE (BENZOCAINE) ONE (11:18)
[2020-07-30] MEDS ORDERED: LIDOCAINE JELLY 2% 6 ML SYRINGE ONE (11:18)
--- NOTE | 2020-07-30 11:23 | Pre-Op Note & Conscious Sedat ---
Pre-Operative Progress Note H&P Reviewed The H&P was reviewed, patient examined and no changes noted. Date H&P Reviewed: July 30, 2020 Time H&P Reviewed: 11:23 Conscious Sedation Pre-Proced ASA Score 2 For ASA 3 and 4: Consider anesthesia and medical clearance. Also, for patients with a history of failed moderate sedation consider anesthesia. Airway Lungs Heart ASA score ASA 1: a normal healthy patient ASA 2: a patient with a mild systemic disease (mid diabetes, controlled hypertension, obesity ASA 3: a patient with a severe systemic disease that limits activity (angina, COPD, prior Myocardial infarction) ASA 4: a patient with an incapacitating disease that is a constant threat to life (CHF, renal failure) ASA 5: a moribund patient not expected to survive 24 hrs. (ruptured aneurysm) ASA 6: a declared brain- patient whose organs are being harvested. For emergent operations, add the letter E after the classification Mallampati Classification Grade 2 Sedation Plan Analgesia, Amnesia, Plan communicated to team members, Discussed options with patient/fam, Discussed risks with patient/fam The patient is an appropriate candidate to undergo the planned procedure, sedation, and anesthesia. The patient immediately re-assessed prior to indication. MORALES WILHELM MD July 30, 2020 11:23
[2020-07-30 12:15] VITALS: BP 117/58
[2020-07-30 12:20] VITALS: BP 126/60
[2020-07-30 12:25] VITALS: BP 117/56
[2020-07-30 12:45] VITALS: BP 138/83
[2020-07-30 13:00] VITALS: BP 138/83
--- NOTE | 2020-07-30 14:53 | Anesthesia-General Post-Op ---
MAC Patient Condition Mental Status/LOC: Same as Preop Cardiovascular: Satisfactory Nausea/Vomiting: Absent Respiratory: Satisfactory Pain: Controlled Complications: Absent Post Op Complications Complications None Follow Up Care/Instructions Patient Instructions None needed. Anesthesiology Discharge Order Discharge Order Patient is doing well, no complaints, stable vital signs, no apparent adverse anesthesia problems. No complications reported per nursing. OLIMPIA SULLIVAN CRNA July 30, 2020 14:53
--- NOTE | 2020-07-30 16:42 | OPERATIVE REPORT ---
DATE OF SERVICE: PANENDOSCOPY SUMMARY INDICATION FOR THE PROCEDURE: Screening colonoscopy and diagnostic EGD due to history of epigastric pain and reported melena. The patient was placed in the left lateral decubitus position. The endoscope was inserted in the oral cavity and under direct visualization, esophagus was intubated. The endoscope was passed down the esophagus through the stomach and second portion of the duodenum. Careful inspection was made as the endoscope was withdrawn. FINDINGS: The proximal, mid and distal esophagus were unremarkable except for the fact that there is a small sliding hiatal hernia and a lower esophageal sphincter was widely patent. No evidence for erosive esophagitis and no evidence for Chavez's esophagus was noted. A photograph was obtained. The cardia, fundus, antrum, pylorus, pyloric channel, duodenal bulb and second portion of duodenum were unremarkable with no potential bleeding sites being identified. No evidence for gastritis. ASSESSMENT: Small sliding hiatal hernia is present with evidence for lower esophageal sphincter incompetency but no evidence for erosive esophagitis or potential bleeding sites on today's EGD. Continue PPI therapy. Prior to undergoing colonoscopy, digital rectal evaluation was performed. Anal sphincter tone was normal and the perianal reflexes intact. No abnormalities were noted on digital inspection of anal canal or distal rectal vault. The rectum, sigmoid colon, descending colon, splenic flexure, transverse colon, hepatic flexure, ascending colon and cecum were unremarkable. No evidence for diverticular disease or neoplasia were identified. ASSESSMENT: Normal colonoscopy to the cecum under fair prep conditions. No potential bleeding sites identified. The patient is to hold her aspirin and she was just taking it for primary prevention. Continue other medications unchanged. Job ID: [id number] DocumentID: [id number] Dictated Date: 07/30/2020 12:22:08 Oil Winterizer Date: 07/30/2020 16:41:44 Dictated By: MORALES WILHELM MD
--- NOTE | 2020-07-31 06:48 | HISTORY AND PHYSICAL ---
DATE OF SERVICE: PANENDOSCOPY SUMMARY HISTORY OF PRESENT ILLNESS: The patient is a 70-year-old white female who reports at least a 1-month history of intermittent dark stools with intermittent epigastric discomfort reported as a burning sensation. She did have one episode of more intense pain with some nausea and vomiting two days prior to her office visit. She denied hematemesis. She denies nonsteroidal medication usage but does take a baby aspirin daily for primary prevention. She has noticed scaling area in the center of her chest that she was concerned about over the past several months. She denies any associated ulceration. She has had no abdominal pain or change in bowel habits and reports no change in weight. She has no past history of peptic ulcer disease. Reports her mother had problems with peptic ulcer disease. It has been little over 10 years since her last screening colonoscopy. She is not aware of any family history for GI tract malignancy. SOCIAL HISTORY: She has no past smoking history and no significant alcohol intake. PHYSICAL EXAMINATION: GENERAL: Reveals a white female, did not appear to be in acute distress. VITAL SIGNS: Her weight compared to her last office weight 6 months ago was down 10 pounds. Blood pressure 130/70. HEENT: Unremarkable. Sclerae nonicteric. No evidence for pallor. CHEST: Clear. CARDIOVASCULAR: Reveals a regular rate and rhythm without murmur, S3 or S4. Heart rate 70 and regular. ABDOMEN: Soft, supple without mass, organomegaly or tenderness. EXTREMITIES: Reveal no cyanosis, clubbing or edema. SKIN: On skin evaluation, she did have scaling lesion on an erythematous base with no ulceration and roughly 6 mm in size and oval. ASSESSMENT AND PLAN: 1. Actinic keratosis. The patient underwent cryotherapy. Expectations discussed. 2. Melena with epigastric symptoms suggesting some reflux. We will need to rule out peptic ulcer disease, etc. We will have the patient to set up for EGD evaluation. As it has been over 10 years, we will perform screening colonoscopy at that time as well. Prep with instructions with the Suprep kit were given and questions were answered. We will have her keep her regular followup on 09/09/2020. Job ID: [id number] DocumentID: [id number] Dictated Date: 07/22/2020 17:09:37 Coach Mechanic Date: 07/22/2020 17:29:38 Dictated By: MORALES WILHELM MD
== END 2020-07-30 13:00 | disposition home or self-care (01) ==
LOC: ENDO 09:58
PROVIDERS: ATTEND Internal Medicine
DX: K44.9 Diaphragmatic hernia without obstruction or gangrene (principal); K92.1 Melena; I10 Essential (primary) hypertension; L57.0 Actinic keratosis; Z98.890 Other specified postprocedural states; Z91.040 Latex allergy status; Z88.1 Allergy status to other antibiotic agents; Z79.2 Long term (current) use of antibiotics; Z79.899 Other long term (current) drug therapy; Z79.82 Long term (current) use of aspirin; Z88.8 Allergy status to other drugs, medicaments and biological substances
CPT/HCPCS: 87636

== ENCOUNTER 2020-10-04 10:13 | Outpatient (RCR) | payer MEDICARE, OTHER ==
[2020-07-19 10:39] LABS: ALANINE AMINOTRANSFERASE 26 U/L (0-55); ALBUMIN 4.4 GM/DL (3.2-4.5); ALKALINE PHOSPHATASE 55 U/L (40-136); BILIRUBIN,TOTAL 1.7 MG/DL (0.1-1.0); BUN/CREATININE RATIO 18; CALCIUM 9.6 MG/DL (8.5-10.1); CARBON DIOXIDE 29 MMOL/L (21-32); CHLORIDE 103 MMOL/L (98-107); CREATININE SERUM 0.79 MG/DL (0.60-1.30); GFR ESTIMATED > 60; GLUCOSE 111 MG/DL (70-105); SODIUM 141 MMOL/L (135-145); TOTAL PROTEIN 6.8 GM/DL (6.4-8.2)
[2020-10-04 10:24] LABS: BASOPHILS % (AUTO) 1 % (0-10); EOSINOPHILS # (AUTO) 0.1 10^3/uL (0.0-0.3); EOSINOPHILS % (AUTO) 3 % (0-10); HEMATOCRIT 41 % (35-52); HEMOGLOBIN 13.3 g/dL (11.5-16.0); LYMPHOCYTES # (AUTO) 1.2 10^3/uL (1.0-4.0); LYMPHOCYTES % (AUTO) 26 % (12-44); MEAN CORPUSCULAR HEMOGLOBIN 31 pg (25-34); MEAN CORPUSCULAR HGB CONC 33 g/dL (32-36); MEAN CORPUSCULAR VOLUME 96 fL (80-99); MEAN PLATELET VOLUME 11.5 fL (9.0-12.2); MONOCYTES # (AUTO) 0.4 10^3/uL (0.0-1.0); MONOCYTES % (AUTO) 9 % (0-12); NEUTROPHILS # (AUTO) 2.7 10^3/uL (1.8-7.8); NEUTROPHILS % (AUTO) 61 % (42-75); PLATELET COUNT 187 10^3/uL (130-400); WHITE BLOOD COUNT 4.5 10^3/uL (4.3-11.0)
[2020-10-04 10:56] LABS: ALBUMIN 4.2 GM/DL (3.2-4.5); BILIRUBIN,TOTAL 1.8 MG/DL (0.1-1.0); CALCIUM 9.5 MG/DL (8.5-10.1); CREATININE SERUM 0.79 MG/DL (0.60-1.30); POTASSIUM 3.9 MMOL/L (3.6-5.0); TOTAL PROTEIN 6.9 GM/DL (6.4-8.2)
== END 2020-10-17 | disposition home or self-care (01) ==
LOC: ONC 10:13
PROVIDERS: ATTEND Internal Medicine Hematology & Oncology
DX: C50.419 Malignant neoplasm of upper-outer quadrant of unspecified female breast (principal); C79.51 Secondary malignant neoplasm of bone; R17 Unspecified jaundice; E78.2 Mixed hyperlipidemia; E80.7 Disorder of bilirubin metabolism, unspecified
CPT/HCPCS: 80053; 82306; 85025; 99213

== ENCOUNTER → 2020-11-19 | Outpatient (CLI) | payer MEDICARE, OTHER | LOC: LABNPT 06:38 | PROVIDERS: ATTEND Orthopaedic Surgery | DX: Z01.812 Encounter for preprocedural laboratory examination (principal); Z20.822 Contact with and (suspected) exposure to COVID-19 | CPT/HCPCS: 87635 ==

== ENCOUNTER → 2020-12-07 | Outpatient (CLI) | payer MEDICARE, OTHER ==
--- NOTE | 2020-12-07 13:55 | Diagnostic Imaging Report ---
INDICATION: Postmenopausal. COMPARISON: 11/26/2018. FINDINGS: The bone mineral density of the spine, hips, and femoral necks was measured. The total T score for the spine is -3.2. On the prior exam, the T score was -2.2. The total T score for the left hip is 1.0 and for the right hip 1.2. Previously, the respective T-scores were 1.0 and 0.9. The total T score for the left femoral neck is -0.3 and for the right -0.1. On the prior exam, the respective T-scores were -0.4 and -0.2. AP Spine L1-L4: [BMD (g/cm2): 0.821] [T-Score: -3.2] [Z-Score: -1.8] [BMD Previous: 0.940] [BMD % Change: -12.7] LT Hip Neck: [BMD (g/cm2): 0.991] [T-Score: -0.3] [Z-Score: 1.2] LT Hip Total: [BMD (g/cm2):1.128] [T-Score:1.0] [Z-Score: 2.2] [BMD Previous: 1.133] [BMD % Change: -0.4] RT Hip Neck: [BMD (g/cm2):1.019] [T-Score:-0.1] [Z-Score:1.4] RT Hip Total: [BMD (g/cm2):1.161] [T-score:1.2] [Z-Score:2.5] [BMD Previous:1.121] [BMD % Change:3.6] *Indicates significant change from prior examination based on 95% confidence level. World Health Organization criteria for BMD interpretation classify patients as Normal (T-score at or above -1.0), Osteopenic (T-score between -1.0 and -2.5) or Osteoporotic (T-score at or below -2.5). LIMITATIONS AND MODIFICATION: None. FRACTURE RISK (FRAX SCORE): The ten year probability of (%): Major Osteoporotic Fracture: [na] Hip Fracture: [na] IMPRESSION: 1. The bone mineral density of the spine has decreased since the prior exam and the T score value now indicates osteoporosis. 2. There has been a minimal increase in the bone mineral density of the right hip and both femoral necks. The total T score for the right hip is unchanged. All of these T score values are within the range of normal. 3. See below National Osteoporosis Foundation guidelines on when to potentially initiate pharmacologic therapy. Based on the National Osteoporosis Foundation Guidelines, pharmacologic treatment should be initiated in any of the following, unless clinical conditions suggest otherwise: * Any patient with prior fragility fracture of the hip or vertebrae. A spine fracture indicates 5X risk for subsequent spine fracture and 2X risk for subsequent hip fracture. * Osteoporosis (T-score <-2.5). * Postmenopausal women and men age 50 and older with low bone mass/osteopenia (T-score between -1.0 and -2.5) by DXA and 10-year major osteoporotic fracture greater than 20% or a 10-year probability of hip fracture greater than 3%. These fracture risks are supplied above in the FRAX score, if applicable. * Clinician judgement and/or patient preferences may indicate treatment for people with 10-year fracture probabilities above or below these levels. Dictated by: Dictated on workstation # [id number]
== END ==
LOC: RAD 12:30
PROVIDERS: ATTEND Internal Medicine Hematology & Oncology
DX: C50.412 Malignant neoplasm of upper-outer quadrant of left female breast (principal); Z78.0 Asymptomatic menopausal state; Z79.811 Long term (current) use of aromatase inhibitors
CPT/HCPCS: 77080

== ENCOUNTER → 2020-12-10 | Outpatient (CLI) | payer MEDICARE, OTHER | LOC: LABNPT 06:09 | PROVIDERS: ATTEND Orthopaedic Surgery | DX: Z01.812 Encounter for preprocedural laboratory examination (principal); Z20.822 Contact with and (suspected) exposure to COVID-19 | CPT/HCPCS: 87635 ==

== ENCOUNTER 2021-01-04 10:02 | Outpatient (RCR) | payer MEDICARE, OTHER ==
[~2021-01-04 10:02] MED LIST changes: +DENOSUMAB 60 MG/1 ML (PROLIA) CANCER CTR SQ SCH
[2021-01-04 10:21] LABS: BASOPHILS % (AUTO) 1 % (0-10); EOSINOPHILS # (AUTO) 0.3 10^3/uL (0.0-0.3); EOSINOPHILS % (AUTO) 5 % (0-10); HEMATOCRIT 35 % (35-52); HEMOGLOBIN 11.7 g/dL (11.5-16.0); LYMPHOCYTES # (AUTO) 1.3 10^3/uL (1.0-4.0); LYMPHOCYTES % (AUTO) 22 % (12-44); MEAN CORPUSCULAR HEMOGLOBIN 31 pg (25-34); MEAN CORPUSCULAR HGB CONC 33 g/dL (32-36); MEAN CORPUSCULAR VOLUME 93 fL (80-99); MEAN PLATELET VOLUME 10.9 fL (9.0-12.2); MONOCYTES # (AUTO) 0.5 10^3/uL (0.0-1.0); MONOCYTES % (AUTO) 9 % (0-12); NEUTROPHILS # (AUTO) 3.5 10^3/uL (1.8-7.8); NEUTROPHILS % (AUTO) 62 % (42-75); PLATELET COUNT 293 10^3/uL (130-400); WHITE BLOOD COUNT 5.7 10^3/uL (4.3-11.0)
[2021-01-04 10:45] LABS: ALBUMIN 4.1 GM/DL (3.2-4.5); BILIRUBIN,TOTAL 1.5 MG/DL (0.1-1.0); CALCIUM 10.7 MG/DL (8.5-10.1); CREATININE SERUM 0.86 MG/DL (0.60-1.30); POTASSIUM 3.4 MMOL/L (3.6-5.0); TOTAL PROTEIN 6.8 GM/DL (6.4-8.2)
== END 2021-03-11 | disposition home or self-care (01) ==
LOC: ONC 10:02
PROVIDERS: ATTEND Internal Medicine Hematology & Oncology
DX: C50.412 Malignant neoplasm of upper-outer quadrant of left female breast (principal); C79.51 Secondary malignant neoplasm of bone; M81.0 Age-related osteoporosis without current pathological fracture; I10 Essential (primary) hypertension; E78.2 Mixed hyperlipidemia; E66.9 Obesity, unspecified; Z79.811 Long term (current) use of aromatase inhibitors; Z92.3 Personal history of irradiation; Z90.12 Acquired absence of left breast and nipple
CPT/HCPCS: 80053; 85025; 96372; G0463

== ENCOUNTER 2021-03-09 16:20 | Outpatient (RCR) | payer MEDICARE, OTHER ==
[~2021-03-09 16:20] MED LIST changes: -DENOSUMAB 60 MG/1 ML (PROLIA) CANCER CTR SQ SCH
== END 2021-03-11 | disposition home or self-care (01) ==
PROVIDERS: ATTEND Orthopaedic Surgery
DX: Z47.1 Aftercare following joint replacement surgery (principal); I10 Essential (primary) hypertension; M81.0 Age-related osteoporosis without current pathological fracture; Z96.651 Presence of right artificial knee joint

== ENCOUNTER → 2021-04-11 | Outpatient (RCR) | payer MEDICARE, OTHER | END | disposition home or self-care (01) | PROVIDERS: ATTEND Orthopaedic Surgery | DX: Z47.1 Aftercare following joint replacement surgery (principal); R26.9 Unspecified abnormalities of gait and mobility; I10 Essential (primary) hypertension; Z96.651 Presence of right artificial knee joint ==

== ENCOUNTER 2021-05-02 09:26 | Outpatient (RCR) | payer MEDICARE, OTHER | END 2021-05-09 | disposition home or self-care (01) | PROVIDERS: ATTEND Orthopaedic Surgery | DX: Z47.1 Aftercare following joint replacement surgery (principal); R26.9 Unspecified abnormalities of gait and mobility; I10 Essential (primary) hypertension; Z96.651 Presence of right artificial knee joint ==

== ENCOUNTER 2021-06-08 11:00 | Outpatient (RCR) | payer MEDICARE, OTHER | END 2021-06-09 | disposition home or self-care (01) | PROVIDERS: ATTEND Orthopaedic Surgery | DX: R26.9 Unspecified abnormalities of gait and mobility (principal); I10 Essential (primary) hypertension; Z96.651 Presence of right artificial knee joint ==

== ENCOUNTER 2021-06-16 09:40 | Outpatient (RCR) | payer MEDICARE, OTHER | END 2021-07-09 | disposition home or self-care (01) | PROVIDERS: ATTEND Orthopaedic Surgery | DX: Z47.1 Aftercare following joint replacement surgery (principal); I10 Essential (primary) hypertension; Z96.651 Presence of right artificial knee joint ==

== ENCOUNTER → 2022-12-12 | Outpatient (CLI) | payer MEDICARE, OTHER ==
[~2022-12-12] MED LIST changes: +POTA-330 PO; -POTA-51 PO
--- NOTE | 2022-12-12 16:00 | Diagnostic Imaging Report ---
INDICATION: Postmenopausal, osteoporosis, history of adult fracture COMPARISON: 11/29/2020 FINDINGS: AP Spine L1-L4: [BMD (g/cm2): 0.934] [T-Score: -2.2] [Z-Score: -0.8] [BMD Previous: 0.821] [BMD % Change: 13.8*] LT Hip Neck: [BMD (g/cm2): 0.996] [T-Score: -0.3] [Z-Score: 1.3] LT Hip Total: [BMD (g/cm2):1.166] [T-Score:1.3] [Z-Score: 2.6] [BMD Previous: 1.128] [BMD % Change: 3.4*] RT Hip Neck: [BMD (g/cm2):1.023] [T-Score:-0.1] [Z-Score:1.5] RT Hip Total: [BMD (g/cm2):1.161] [T-score:1.2] [Z-Score:2.6] [BMD Previous:1.161] [BMD % Change:0.0] *Indicates significant change from prior examination based on 95% confidence level. World Health Organization criteria for BMD interpretation classify patients as Normal (T-score at or above -1.0), Osteopenic (T-score between -1.0 and -2.5) or Osteoporotic (T-score at or below -2.5). LIMITATIONS AND MODIFICATION: None. FRACTURE RISK (FRAX SCORE): The ten year probability of (%): Major Osteoporotic Fracture: [na] Hip Fracture: [na] IMPRESSION: 1. Osteopenia (Low bone mass). 2. There has been a statistically significant increase in BMD since prior exam, detailed above. 3. See below National Osteoporosis Foundation guidelines on when to potentially initiate pharmacologic therapy. Based on the National Osteoporosis Foundation Guidelines, pharmacologic treatment should be initiated in any of the following, unless clinical conditions suggest otherwise: * Any patient with prior fragility fracture of the hip or vertebrae. A spine fracture indicates 5X risk for subsequent spine fracture and 2X risk for subsequent hip fracture. * Osteoporosis (T-score <-2.5). * Postmenopausal women and men age 50 and older with low bone mass/osteopenia (T-score between -1.0 and -2.5) by DXA and 10-year major osteoporotic fracture greater than 20% or a 10-year probability of hip fracture greater than 3%. These fracture risks are supplied above in the FRAX score, if applicable. * Clinician judgement and/or patient preferences may indicate treatment for people with 10-year fracture probabilities above or below these levels. Dictated by: Dictated on workstation # [id number]
== END ==
LOC: RAD 07:55
PROVIDERS: ATTEND Internal Medicine Hematology & Oncology
DX: M85.88 Other specified disorders of bone density and structure, other site (principal); C50.412 Malignant neoplasm of upper-outer quadrant of left female breast; Z79.811 Long term (current) use of aromatase inhibitors
CPT/HCPCS: 77080